=== PATIENT | male | born 1955 | race Caucasian/White ===

== ENCOUNTER 2018-05-13 14:57 | Inpatient (IN) | payer OTHER ==
[~2018-05-13] VITALS: Ht 175.3 cm; Wt 72.7 kg
[2018-05-13] MEDS ORDERED: NALOXONE (0.4 MG/ML) INJ IV STA (15:10)
[2018-05-13] MEDS ORDERED: SODIUM CHLORIDE 0.9% 1L BAG IV* STA (16:24)
[2018-05-13] MEDS ORDERED: CEFEPIME 1GM/50 ML (PMX) 50 ML IVPB ONE (16:30)
[2018-05-13] MEDS ORDERED: metroNIDAZOLE 500 MG/NS (PMX) 100 ML IVPB ONE (16:30)
[2018-05-13] MEDS ORDERED: VANCOMYCIN 1 GM (PMX) 250 ML IVPB ONE (16:30)
[2018-05-13] MEDS ORDERED: HYDR-4011 PO (16:50)
[2018-05-13] MEDS ORDERED: SPIR50TA PO (16:50)
[2018-05-13] MEDS ORDERED: FOLI-49 PO (16:50)
[2018-05-13] MEDS ORDERED: FURO20TA3 PO (16:51)
[2018-05-13] MEDS ORDERED: LEVE100018 PO (16:51)
[2018-05-13] MEDS ORDERED: GABA300C16 PO (16:51)
[2018-05-13] MEDS ORDERED: FAMO40TA5 PO (16:51)
[2018-05-13] MEDS ORDERED: ONDANSETRON 4 MG INJ IV PRN (21:00)
[2018-05-13] MEDS ORDERED: ACETAMINOPHEN 325 MG TAB PO PRN (21:00)
--- NOTE | 2018-05-13 21:38 | ERD ---
ER Documentation Chief Complaint Chief Complaint took vicodin, as per EMS; responsive after narcan x 2 HPI This is a 62-year-old male with an apparent past medical history of hypertension, CHF, seizure disorder, chronic pain/neuropathy on gabapentin and Vicodin, alcohol abuse who is presenting for altered mental status. The patient reportedly walked into a fast food restaurant and ordered something. He was in the process of eating when he reportedly fell asleep at 1 of the tables. The patient had decreased responsiveness and lethargy in the restaurant, so an ambulance was called. There is concerned that the patient could have overdosed on Vicodin and he was given intramuscular Narcan x2 with reported improvement of his mentation. The patient is lethargic in the emergency department. He does open his eyes to pain and he moves extremities to pain. He is currently only making incomprehensible sounds and moans. History and physical is limited secondary to altered mentation. ROS Review of systems limited secondary to altered mentation. Medications Home Meds Reported Medications Levetiracetam* (Keppra*) 1,000 Mg Tablet, 1000 MG PO BID, TAB 05/13/18 Gabapentin* (Gabapentin*) 300 Mg Capsule, 300 MG PO BID, #60 CAP 05/13/18 Famotidine* (Famotidine*) 40 Mg Tablet, 40 MG PO HS, #30 TAB 05/13/18 Furosemide* (Furosemide*) 20 Mg Tablet, 20 MG PO DAILY, #60 TAB 05/13/18 Spironolactone* (Aldactone*) 50 Mg Tablet, 50 MG PO DAILY, #30 TAB 05/13/18 Folic Acid* (Folic Acid*) 1 Mg Tablet, 1 MG PO DAILY 05/13/18 Hydrocodone/Acetaminophen (Bernard 5-325 Tablet) 1 Each Tablet, 1 EACH PO Q12 PRN for SEVERE PAIN LEVEL 7-10, TAB 05/13/18 Allergies Allergies: Coded Allergies: Unable to Assess (Verified Allergy, Severe, 05/13/18) PMhx/Soc Obtained by pharmacy report Medical and Surgical Hx: Unable to obtain Hx Neurological Disorder: Yes (Chronic pain, seizures) Hx Cardiac Disorders: Yes (Hypertension, CHF) Hx Alcohol Use: No (unk) Hx Substance Use: Yes (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 Disheveled. Head: Normocephalic, Atraumatic Eyes: Normal Conjunctiva. Extraocular movements intact. Pupils equal, round and reactive to light ENT: Normal External Ears, Nose and Mouth. Neck: Full range of motion. No meningismus. Resp: Clear to auscultation bilaterally, No wheezes, rales or rhonchi Cardio: Regular rate and rhythm. No murmurs, rubs or gallops Abd: Soft, non tender, non distended. Normal bowel sounds. Incontinent of stool. Skin: No petechiae or rashes Back: No midline tenderness. No CVA tenderness Ext: No cyanosis. Bilateral lower extremity edema with erythema and ulcerative lesions. Neur: Lethargic. Opens eyes to pain. Moves extremities spontaneously and localizes to pain. Groans, making incomprehensible sounds. No obvious focal deficits. GCS is 9. Result Diagram: 05/13/18 1624 05/13/18 1624 Results 24 hrs Laboratory Tests Test 05/13/18 16:24 05/13/18 16:25 05/13/18 16:26 05/13/18 18:50 White Blood Count 8.2 10^3/ul Red Blood Count 3.52 10^6/ul Hemoglobin 11.2 g/dl Hematocrit 33.7 % Mean Corpuscular 95.7 fl Volume Mean Corpuscular 31.8 pg Hemoglobin Mean Corpuscular 33.2 g/dl Hemoglobin Concent Red Cell 17.6 % Distribution Width Platelet Count 218 10^3/UL Mean Platelet 9.2 fl Volume Immature 0.400 % Granulocytes % Neutrophils % 64.1 % Lymphocytes % 17.3 % Monocytes % 14.3 % Eosinophils % 2.9 % Basophils % 1.0 % Nucleated Red Blood 0.0 /100WBC Cells % Immature 0.030 10^3/ul Granulocytes # Neutrophils # 5.3 10^3/ul Lymphocytes # 1.4 10^3/ul Monocytes # 1.2 10^3/ul Eosinophils # 0.2 10^3/ul Basophils # 0.1 10^3/ul Nucleated Red Blood 0.0 10^3/ul Cells # Sodium Level 139 mmol/L Potassium Level 3.2 mmol/L Chloride Level 108 mmol/L Carbon Dioxide 21 mmol/L Level Anion Gap 10 Blood Urea Nitrogen 15 mg/dl Creatinine 0.86 mg/dl Est Glomerular > 60 mL/min Filtrat Rate mL/min Glucose Level 96 mg/dl Calcium Level 8.5 mg/dl Total Bilirubin 0.7 mg/dl Direct Bilirubin 0.00 mg/dl Indirect Bilirubin 0.7 mg/dl Aspartate Amino 95 IU/L Transf (AST/SGOT) Alanine 33 IU/L Aminotransferase (A LT/SGPT) Alkaline 173 IU/L Phosphatase Total Protein 6.9 g/dl Albumin 2.8 g/dl Globulin 4.10 g/dl Albumin/Globulin 0.68 Ratio Salicylates Level < 1.0 mg/dl Acetaminophen Level < 10.0 ug/ml Ethyl Alcohol Level 161.0 mg/dl Prothrombin Time 14.7 Sec Prothrombin Time 1.1 Ratio INR International 1.14 Normalized Ratio Activated 31.0 Sec Partial Thromboplas t Time Urine Color ELIAS Urine Clarity SLIGHTLY CLOUDY Urine pH 5.0 Urine Specific 1.025 [place] Urine Ketones TRACE mg/dL Urine Nitrite NEGATIVE mg/dL Urine Bilirubin NEGATIVE mg/dL Urine Urobilinogen 2+ mg/dL Urine Leukocyte NEGATIVE Mikey/ul Esterase Urine Microscopic 117 /HPF RBC Urine Microscopic 15 /HPF WBC Urine Squamous FEW /HPF Epithelial Cells Urine Bacteria FEW /HPF Urine Mucus MANY /HPF Urine Hemoglobin 3+ mg/dL Urine Glucose NEGATIVE mg/dL Urine Total Protein 2+ mg/dl Troponin I < 0.012 ng/ml Urine Opiates Negative Screen Urine Barbiturates Negative Urine Amphetamines Negative Screen Urine Negative Benzodiazepines Screen Urine Cocaine Negative Screen Urine Cannabinoids Negative POC Venous Lactate 3.0 mmol/L 2.6 mmol/L Current Medications Medications Dose Sig/Angel Start Time Status Last (Trade) Ordered Route PRN Stop Time Admin Dose Reason Admin Naloxone 0.4 mg ONCE STAT 05/13/18 DC 05/13/18 HCl IV 15:10 05/13/18 15:43 (Narcan) 15:13 Sodium 2,180 ml BOLUS OVER 2 05/13/18 DC 05/13/18 Chloride HOURS STAT 16:24 05/13/18 17:57 (NS) IV* 16:26 Vancomycin 250 ml @ ONCE ONCE 05/13/18 DC 05/13/18 HCl 125 mls/hr IVPB 16:30 05/13/18 18:53 18:29 Cefepime HCl 50 ml @ ONCE ONCE 05/13/18 DC 05/13/18 100 mls/hr IVPB 16:30 05/13/18 17:56 16:59 100 ml @ ONCE ONCE 05/13/18 DC 05/13/18 Metronidazole 100 mls/hr IVPB 16:30 05/13/18 17:55 17:29 Ondansetron 4 mg ER BRIDGE 05/13/18 HCl (Zofran PRN IV 21:00 05/14/18 Inj) NAUSEA/VOMITI 20:59 NG 650 mg ER BRIDGE 05/13/18 Acetaminophen PRN PO 21:00 05/14/18 (Tylenol .MILD PAIN 20:59 Tab) 1-3 OR TEMP Procedures/MDM MDM The patient's presentation warrants further investigation. Previous medical rec ords, if available, were reviewed. LABS The patient's laboratory testing was obtained and reviewed. No emergent treatment was required unless described below. CBC: No E/o of systemic infection or severe anemia or thrombocytopenia. Mild normocytic anemia, nonemergent. Chemistry: No E/o severe acidosis or alkalosis or renal failure or diabetic ketoacidosis. Mild hypokalemia, nonemergent. Transaminitis, likely reactive. Mild hypoalbuminemia. PT/INR: No E/o significant coagulopathy Lactate: E/o severe sepsis Troponin: No E/o acute ischemia Urine: E/o acute infection with hematuria Tox: E/o alcohol abuse. No E/o illicit drug use. EKG EKG read by me: Rate/Rhythm: Regular rate and rhythm at a rate of 71 bpm Intervals: Normal [place]: Normal Impression: No evidence of acute ischemia or arrhythmia IMAGING Imaging and Radiology interpretation reviewed. CXR FINDINGS: The heart is enlarged. The thoracic aorta is calcified. There is a questionable 8 mm left upper lobe nodular opacity. There is no focal infiltrate. There is no pleural effusion or pneumothorax. IMPRESSION: Mild cardiomegaly. Calcified aorta consistent with atherosclerotic disease. Questionable 8 mm left upper lobe nodular opacity. Follow-up CT chest with a routine basis is recommended. Electronically viewed and signed by .Job Miller MD, on 05/13/2018 17:13 CT Head FINDINGS: Brain: Mild cerebral and cerebellar volume loss and multifocal areas of hypoattenuation in the deep and subcortical white matter present. No acute hemorrhage or mass effect. Pineda-white distinction is preserved throughout the exam. Skull base: The bony sella, pituitary gland and infundibulum unremarkable. Basal cisterns are clear. Posterior fossa unremarkable. Visualized portions of external auditory canals and tympanic cavities are within normal limits. Ventricles: Concordant with parenchymal volume. Bones/Scalp: No scalp soft tissue swelling. The underlying calvarium is intact without skull fracture or lytic lesion. Sinuses: Mucosal thickening in the left maxillary sinus. Mastoid air cells are aerated. The osseous calvarium appears intact. Mastoid air cells: Unremarkable as visualized. No mastoid effusion. Other: Mild atherosclerotic calcification in the cavernous portions of the distal internal carotid arteries are noted. IMPRESSION: 1. Mild cerebral volume loss with small vessel ischemic changes. 2. No mass effect, transcortical infarction or acute intracerebral hemorrhage. 3. Mild intracranial atherosclerosis. 4. Mucosal thickening in the left maxillary sinus. Electronically viewed and signed by Physician Demetrio on 05/13/2018 17:35 TREATMENT/DISPOSITION There is initial concern for opiate overdose. However, the patient's symptoms are more likely related to alcohol intoxication. The patient's mentation did improve in the emergency department. However, the patient had an episode of profuse watery diarrhea, and there is concern for C. difficile colitis. The patient's urinalysis also reveals a urinary tract infection. There is also concern for cellulitis to the lower extremities. It was ultimately decided to pursue a septic workup, the patient's lactic acid was also elevated. The patient was given a sepsis bolus and antibiotics were initiated. SEPSIS NOTE Infectious source: Infectious diarrhea, UTI, cellulitis End organ damage indicated by: Lactate > 2.0 mmol/L SEPSIS MANAGEMENT Time to recognize sepsis: 430 Time to recognize severe sepsis: 430. Time to recognize septic shock: No septic shock at this time. 3 HOUR BUNDLE Blood cultures x 2 before abx: Yes 30 ml/kg NS bolus completed Initial lactate 3.0 Repeat lactate 2.6 SEPTIC SHOCK ASSESSMENT: NO lactic acid > 4.0 NO persistent hypotension (SBP < 90 or 40 mmHg drop, MAP < 65) despite 30 L/kg IV fluid bolus CRITICAL CARE Critical care time 34 minutes Emergent fluid management while maintaining close respiratory support. Provision of immediate and broad-spectrum antibiotic therapy. Simultaneous assessment for possible sources in order to direct targeted therapy. Consideration for invasive and chemical support to prevent cardiopulmonary collapse. Critical care time is independent of procedures performed. ADMISSION The patient will be admitted to [facility] in accordance with the patient's insurance. The patient was accepted by Dr. Montez at 8:28 PM on May 13, 2018 pending telemetry. Disclaimer: Inadvertent spelling and grammatical errors are likely due to EHR/dictation software use and do not reflect on the overall quality of patient care. Note that the electronic time recorded on this note does not necessarily reflect the actual time of the patient encounter. Departure Diagnosis: Primary Impression: Altered mental status Altered mental status type: unspecified Qualified Codes: R41.82 - Altered mental status, unspecified Additional Impressions: Alcohol intoxication Complication of substance-induced condition: with unspecified complication Qualified Codes: F10.929 - Alcohol use, unspecified with intoxication, unspecified Severe sepsis Leukocytosis Leukocytosis type: unspecified Qualified Codes: D72.829 - Elevated white blood cell count, unspecified Diarrhea Diarrhea type: presumed infectious Qualified Codes: R19.7 - Diarrhea, unspecified Urinary tract infection Urinary tract infection type: acute cystitis Hematuria presence: with he maturia Qualified Codes: N30.01 - Acute cystitis with hematuria Cellulitis Site of cellulitis: extremity Site of cellulitis of extremity: lower extremity Laterality: unspecified laterality Qualified Codes: L03.119 - Cellulitis of unspecified part of limb Condition: Serious AMILCAR OCAMPO MD May 13, 2018 21:36
[2018-05-13 23:19] VITALS: PULSE 70
[2018-05-13 23:42] VITALS: Ht 175.3 cm; Wt 72.7 kg
[2018-05-13 23:54] VITALS: BP 111/74; PULSE 76; RESP 18
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
[2018-05-14] VITALS (11 sets, daily range): BP systolic 93–126; BP diastolic 52–58; PULSE 63–86; RESP 17–20
[2018-05-14] MEDS ORDERED: morphine 2 MG INJ IV PRN
[2018-05-14] MEDS ORDERED: NACL 0.9% 3 ML SYG IV SCH
[2018-05-14] MEDS ORDERED: ONDANSETRON 4 MG INJ IV PRN
[2018-05-14] MEDS ORDERED: LORAZEPAM 2 MG INJ IV PRN
[2018-05-14] MEDS: DEXTROSE 5%-0.45% NACL 1,000 ML IV SCH ×3 (00:52→21:26)
[2018-05-14] MEDS ORDERED: VANCOMYCIN IV PER PHARMACY XX SCH (07:00)
[2018-05-14] MEDS: LEVETIRACETAM 1000 MG (PMX) 100 ML IVPB SCH ×2 (08:14→22:37)
[2018-05-14] MEDS: CEFEPIME 1GM/50 ML (PMX) 50 ML IVPB SCH ×2 (08:18→21:27)
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
[2018-05-14] MEDS: CHLORDIAZEPOXIDE 25 MG CAP PO SCH ×3 (09:56→21:14)
--- NOTE | 2018-05-14 10:00 | PSY ---
Date/Time of Note Date/Time of Note DATE: 05/14/18 TIME: 09:47 Psychiatric Subjective Eval Consent Pt consented to telemedicine: No Subjective Evaluation Patient location: inpatient Chief Complaint: took vicodin, as per EMS; responsive after narcan x 2 History of present illness Patient is a 62-year-old male who currently on telemetry units for altered mental status and possible opioid overdose. [id number] evaluation, patient somewhat lethargic but admits he accidentally took excessive amount of the methadone to be able to sleep. He denies any suicidal acts states he loves life and would never kill himself but that he has chronic insomnia and has been treated at [facility] for his chronic insomnia patient states he does not remember specifically how much methadone he took. Patient is currently confabulating, difficult to get him to focus . He goes off on tangents,repeating his words over and over again. Patient cannot process information however he was consistence stating that he is not suicidal and that he loves life and contracted for safety. 1-1 supervision discontinued. Past psychiatric history Reports history of insomnia and had been seen at [facility] for insomnia Hospitalization: no (Patient denies hospitalization but admits history of insomnia and sees a psychiatrist for insomnia at [facility]) Medical history Problems Medical Problems: (1) Alcohol intoxication Status: Acute (2) Altered mental status Status: Acute (3) Cellulitis Status: Acute (4) Diarrhea Status: Acute (5) Leukocytosis Status: Acute (6) Severe sepsis Status: Acute (7) Urinary tract infection Status: Acute Allergies: Coded Allergies: Unable to Assess (Verified Allergy, Severe, 05/13/18) Substance Abuse Substance use: other (History of alcohol abuse and heroin abuse) Substance abuse history: Yes Social History Marital status: single DPA/Conservatorship: No Psychiatric Objective Eval Review of Systems: Review of Systems: Not Applicable Physical Examination: Energy: Adequate Interest: Adequate Mental Status Examination: Appearance: Poor Hygiene Eye Contact: Fair Behavior: Cooperative Speech: Soft AFFECT: Constricted Mood: Anxious Though Process: Linear Thought Content: Normal Orientation: x3 Insight: Severe Judgement: Severe Attention Span: Distractible Laboratory Results Laboratory Tests Test 05/13/18 16:24 05/13/18 16:25 05/13/18 16:26 05/13/18 18:50 White Blood Count 8.2 10^3/ul Red Blood Count 3.52 10^6/ul Hemoglobin 11.2 g/dl Hematocrit 33.7 % Mean Corpuscular 95.7 fl Volume Mean Corpuscular 31.8 pg Hemoglobin Mean Corpuscular 33.2 g/dl Hemoglobin Concen t Red Cell 17.6 % Distribution Width Platelet Count 218 10^3/UL Mean Platelet 9.2 fl Volume Immature 0.400 % Granulocytes % Neutrophils % 64.1 % Lymphocytes % 17.3 % Monocytes % 14.3 % Eosinophils % 2.9 % Basophils % 1.0 % Nucleated Red 0.0 /100WBC Blood Cells % Immature 0.030 10^3/ul Granulocytes # Neutrophils # 5.3 10^3/ul Lymphocytes # 1.4 10^3/ul Monocytes # 1.2 10^3/ul Eosinophils # 0.2 10^3/ul Basophils # 0.1 10^3/ul Nucleated Red 0.0 10^3/ul Blood Cells # Sodium Level 139 mmol/L Potassium Level 3.2 mmol/L Chloride Level 108 mmol/L Carbon Dioxide 21 mmol/L Level Anion Gap 10 Blood Urea 15 mg/dl Nitrogen Creatinine 0.86 mg/dl Est Glomerular > 60 mL/min Filtrat Rate mL/min Glucose Level 96 mg/dl Calcium Level 8.5 mg/dl Total Bilirubin 0.7 mg/dl Direct Bilirubin 0.00 mg/dl Indirect 0.7 mg/dl Bilirubin Aspartate Amino 95 IU/L Transf (AST/SGOT) Alanine 33 IU/L Aminotransferase (ALT/SGPT) Alkaline 173 IU/L Phosphatase Total Protein 6.9 g/dl Albumin 2.8 g/dl Globulin 4.10 g/dl Albumin/Globulin 0.68 Ratio Salicylates Level < 1.0 mg/dl Acetaminophen < 10.0 ug/ml Level Ethyl Alcohol 161.0 mg/dl Level Prothrombin Time 14.7 Sec Prothrombin Time 1.1 Ratio INR International 1.14 Normalized Ratio Activated 31.0 Sec Partial Thrombopl ast Time Urine Color ELIAS Urine Clarity SLIGHTLY CLOUDY Urine pH 5.0 Urine Specific 1.025 [place] Urine Ketones TRACE mg/dL Urine Nitrite NEGATIVE mg/dL Urine Bilirubin NEGATIVE mg/dL Urine 2+ mg/dL Urobilinogen Urine Leukocyte NEGATIVE Mikey/ul Esterase Urine Microscopic 117 /HPF RBC Urine Microscopic 15 /HPF WBC Urine Squamous FEW /HPF Epithelial Cells Urine Bacteria FEW /HPF Urine Mucus MANY /HPF Urine Hemoglobin 3+ mg/dL Urine Glucose NEGATIVE mg/dL Urine Total 2+ mg/dl Protein Troponin I < 0.012 ng/ml Urine Opiates Negative Screen Urine Negative Barbiturates Urine Negative Amphetamines Screen Urine Negative Benzodiazepines Screen Urine Cocaine Negative Screen Urine Negative Cannabinoids POC Venous 3.0 mmol/L 2.6 mmol/L Lactate Test 05/13/18 21:25 05/14/18 00:27 05/14/18 06:03 Lactic Acid Level 2.1 mmol/L Creatine Kinase 111 IU/L 92 IU/L Creatine Kinase 3.8 4.0 Index Creatinine Kinase 4.27 ng/ml 3.68 ng/ml MB (Mass) Troponin I < 0.012 ng/ml < 0.012 ng/ml White Blood Count 8.5 10^3/ul Red Blood Count 3.16 10^6/ul Hemoglobin 10.1 g/dl Hematocrit 30.8 % Mean Corpuscular 97.5 fl Volume Mean Corpuscular 32.0 pg Hemoglobin Mean Corpuscular 32.8 g/dl Hemoglobin Concen t Red Cell 17.7 % Distribution Width Platelet Count 147 10^3/UL Mean Platelet 9.1 fl Volume Immature 0.500 % Granulocytes % Neutrophils % 67.0 % Lymphocytes % 16.8 % Monocytes % 11.8 % Eosinophils % 3.2 % Basophils % 0.7 % Nucleated Red 0.0 /100WBC Blood Cells % Immature 0.040 10^3/ul Granulocytes # Neutrophils # 5.7 10^3/ul Lymphocytes # 1.4 10^3/ul Monocytes # 1.0 10^3/ul Eosinophils # 0.3 10^3/ul Basophils # 0.1 10^3/ul Nucleated Red 0.0 10^3/ul Blood Cells # Sodium Level 141 mmol/L Potassium Level 3.6 mmol/L Chloride Level 110 mmol/L Carbon Dioxide 24 mmol/L Level Anion Gap 7 Blood Urea 14 mg/dl Nitrogen Creatinine 0.72 mg/dl Est Glomerular > 60 mL/min Filtrat Rate mL/min Glucose Level 80 mg/dl Hemoglobin A1c 4.6 % Calcium Level 7.6 mg/dl Magnesium Level 1.8 mg/dl Total Bilirubin 0.8 mg/dl Direct Bilirubin 0.00 mg/dl Indirect 0.8 mg/dl Bilirubin Aspartate Amino 67 IU/L Transf (AST/SGOT) Alanine 37 IU/L Aminotransferase (ALT/SGPT) Alkaline 119 IU/L Phosphatase Total Protein 5.8 g/dl Albumin 2.1 g/dl Globulin 3.70 g/dl Albumin/Globulin 0.56 Ratio Triglycerides 50 mg/dl Level Cholesterol Level 96 mg/dl LDL Cholesterol, 48 mg/dl Calculated HDL Cholesterol 38 mg/dl Cholesterol/HDL 2.5 RATIO Ratio Thyroid 0.681 MIU/L Stimulating Hormone (TSH) Assessment and Plan Assessment/Diagnosis Diagnosis Insomnia NOS, rule out delirium Recommendation/Plan Medication Management Trazodone 50 mg at bedtime, gabapentin 300 mg twice a day, continue Ativan 1 mg every 1 PRN as ordered Multiple antipsychotics: No Discharge Disposition: Other Legal Status: Voluntary (Does not meet criteria for 5150 hold) ALEX WIGGINS NP May 14, 2018 09:57
[2018-05-14] MEDS: MULTIVITAMINS 10 ML, THIAMINE 100 MG, FOLIC ACID 1 MG in SOD CHLORIDE 0.9% 1,000 ML IVPB SCH (10:06)
[2018-05-14] MEDS: GABAPENTIN 300 MG CAP PO SCH ×2 (10:38→21:14)
[2018-05-14] MEDS: VANCOMYCIN HCL 1.25 GM in SOD CHLORIDE 0.9% 250 ML IVPB SCH ×2 (10:59→23:03)
[2018-05-14] MEDS ORDERED: METHADONE (1 MG/ML 5 ML PO UD SYG) PO SCH (11:00)
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
[2018-05-14] MEDS: METHADONE 10 MG TAB PO SCH (11:38)
[2018-05-14] MEDS: traZODone 50 MG TAB PO SCH (21:13)
[2018-05-15] VITALS (12 sets, daily range): BP systolic 95–116; BP diastolic 52–62; PULSE 65–89; RESP 18–19
[2018-05-15] MEDS: GUAIFENESIN/CODEINE 5ML CUP PO PRN ×2 (00:28→22:10)
[2018-05-15] MEDS: DEXTROSE 5%-0.45% NACL 1,000 ML IV SCH ×2 (04:49→16:01)
[2018-05-15] MEDS: LEVETIRACETAM 1000 MG (PMX) 100 ML IVPB SCH ×2 (08:38→22:09)
[2018-05-15] MEDS: METHADONE 10 MG TAB PO SCH (08:44)
[2018-05-15] MEDS: GABAPENTIN 300 MG CAP PO SCH ×2 (08:44→22:09)
[2018-05-15] MEDS: CHLORDIAZEPOXIDE 25 MG CAP PO SCH ×3 (08:45→22:09)
[2018-05-15] MEDS: CEFEPIME 1GM/50 ML (PMX) 50 ML IVPB SCH ×2 (08:56→21:22)
[2018-05-15] MEDS: MULTIVITAMINS 10 ML, THIAMINE 100 MG, FOLIC ACID 1 MG in SOD CHLORIDE 0.9% 1,000 ML IVPB SCH (09:32)
[2018-05-15] MEDS: VANCOMYCIN HCL 1.25 GM in SOD CHLORIDE 0.9% 250 ML IVPB SCH (09:37)
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
[2018-05-15] MEDS: FUROSEMIDE 20 MG INJ IV SCH (12:28)
[2018-05-15] MEDS: traZODone 50 MG TAB PO SCH (22:09)
[2018-05-16] VITALS (12 sets, daily range): BP systolic 90–114; BP diastolic 50–63; PULSE 65–88; RESP 16–18
[2018-05-16] MEDS: DEXTROSE 5%-0.45% NACL 1,000 ML IV SCH (02:09)
[2018-05-16] MEDS: VANCOMYCIN 1 GM 250 ML IVPB SCH ×2 (02:09→14:55)
--- NOTE | 2018-05-16 09:03 | CONS ---
DATE OF ADMISSION: 05/13/2018 DATE OF CONSULTATION: 05/16/2018 REFERRING PHYSICIAN: Dr. Angeles Reynoso. REASON FOR CONSULTATION: Right calf ulcer. HISTORY OF PRESENT ILLNESS: This is a 62-year-old lethargic gentleman who was admitted with altered mental status and syncope. It is likely related to heavy alcohol abuse and pain medication. He is s till recovering. He is lethargic and sleepy, but I was asked to see him because he has a right anter ior calf ulcer that has been there for many years. Apparently it was traumatic at some point. He is a very poor historian. PAST MEDICAL HISTORY: Significant for alcohol intoxication, cellulitis, altered mental status, urina ry tract infections. MEDICATIONS: Consist of: 1. Famotidine. 2. Folate. 3. Lasix. 4. Gabapentin. 5. [place]. 6. Keppra. 7. Aldactone. PAST SURGICAL HISTORY: Basically unknown. SOCIAL HISTORY: He is an everyday smoker. FAMILY HISTORY: Noncontributory. REVIEW OF SYSTEMS: These were just sleeping and lethargic, currently unable to get a history from [facility]. PHYSICAL EXAMINATION GENERAL: He is an elderly gentleman. He is in no distress. VITAL SIGNS: He has been afebrile. His blood pressure is 90/51, heart rate 71, respiratory rate 16. He is 93% sat on room air. NECK: He has 2+ carotid, radial and brachial pulses bilaterally. LUNGS: Clear. HEART: Regular rate and rhythm. ABDOMEN: Soft, nontender, nondistended. EXTREMITIES: He has 2+ femoral pulses. I do not feel popliteal, DP or PT pulses on either leg. He has got moderate edema in both legs. On the right anterior lateral calf, there is a large chronic wound. There are pictures of it on the [facility] chart. He has not had any lower extremity imaging. I will schedule him for arterial and venous studies of the lower extremities to get a baseline and then recommend some wound care. He is capitate at [facility] so that when he is discharged he can follow up with him at the wound center t here for further care. Dictated By: HAFSA MELGAR/KENNEDI Conf#: [id number] DID#: [id number] CC: ANGELES REYNOSO; JENY HEBERT MD;*[facility]*
[2018-05-16] MEDS: LEVETIRACETAM 1000 MG (PMX) 100 ML IVPB SCH ×2 (09:48→21:04)
[2018-05-16] MEDS: CHLORDIAZEPOXIDE 25 MG CAP PO SCH ×2 (09:50→20:48)
[2018-05-16] MEDS: METHADONE 10 MG TAB PO SCH (09:50)
[2018-05-16] MEDS: GABAPENTIN 300 MG CAP PO SCH ×2 (09:51→20:48)
[2018-05-16] MEDS: CEFEPIME 1GM/50 ML (PMX) 50 ML IVPB SCH ×2 (09:51→20:48)
[2018-05-16] MEDS: FUROSEMIDE 20 MG INJ IV SCH (09:51)
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
[2018-05-16] MEDS: traZODone 50 MG TAB PO SCH (20:48)
[2018-05-16] MEDS ORDERED: IOHEXOL 300MG/ML 150 ML BTL ONE (22:44)
[2018-05-16] MEDS ORDERED: SOD CHLORIDE 0.9% 100 ML ONE (22:44)
[2018-05-17] VITALS (13 sets, daily range): BP systolic 92–106; BP diastolic 44–59; PULSE 63–78; RESP 16–20
[2018-05-17] MEDS: VANCOMYCIN 1 GM 250 ML IVPB SCH (01:48)
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
--- NOTE | 2018-05-17 06:37 | CONS ---
Consultation Date/Type/Reason Admit Date/Time May 13, 2018 at 20:53 Date/Time of Note DATE: 05/17/18 TIME: 06:37 Above note for patient was for hospital visit May 16, 2018, postdated note. Past Medical History Medical History: other (Unreliable) Home Meds Reported Medications Levetiracetam* (Keppra*) 1,000 Mg Tablet, 1000 MG PO BID, TAB 05/13/18 Gabapentin* (Gabapentin*) 300 Mg Capsule, 300 MG PO BID, #60 CAP 05/13/18 Famotidine* (Famotidine*) 40 Mg Tablet, 40 MG PO HS, #30 TAB 05/13/18 Furosemide* (Furosemide*) 20 Mg Tablet, 20 MG PO DAILY, #60 TAB 05/13/18 Spironolactone* (Aldactone*) 50 Mg Tablet, 50 MG PO DAILY, #30 TAB 05/13/18 Folic Acid* (Folic Acid*) 1 Mg Tablet, 1 MG PO DAILY 05/13/18 Hydrocodone/Acetaminophen ([place] 5-325 Tablet) 1 Each Tablet, 1 EACH PO Q12 PRN for SEVERE PAIN LEVEL 7-10, TAB 05/13/18 Medications Current Medications IV Flush (NS 3 ml) 3 ml PER PROTOCOL IV ; Start 05/14/18 at 00:00 Lorazepam (Ativan) 1 mg Q1H PRN IV CONTROL WITHDRAWAL SYMPTOMS; Start 05/14/18 at 00:00 Ondansetron HCl (Zofran Inj) 4 mg Q6H PRN IV NAUSEA/VOMITING; Start 05/14/18 at 00:00 Albuterol/ Ipratropium (Duoneb) 3 ml Q2H RESP THERAPY PRN HHN SHORTNESS OF BREATH; Start 05/14/18 at 00:00 Levetiracetam 100 ml @ 400 mls/hr Q12 IVPB Last administered on 05/16/18at 21:04; Admin Dose 400 MLS/HR; Start 05/14/18 at 09:00 Vancomycin HCl (Vanco Iv Per Pharmacy) VANCOMYCIN PER PHARMACY PER PROTOCOL XX ; Start 05/14/18 at 07:00 Cefepime HCl 50 ml @ 100 mls/hr Q12 IVPB Last administered on 05/16/18at 20:48; Admin Dose 100 MLS/HR; Start 05/14/18 at 09:00 Trazodone HCl (Desyrel) 50 mg HS PO Last administered on 05/16/18 20:48; Admin Dose 50 MG; Start 05/14/18 at 21:00 Gabapentin (Neurontin) 300 mg BID PO Last administered on 05/16/18 20:48; Admin Dose 300 MG; Start 05/14/18 at 10:00 Methadone HCl (Methadone) 20 mg DAILY PO Last administered on 05/16/18 09:50; Admin Dose 20 MG; Start 05/14/18 at 12:00 Furosemide (Lasix) 20 mg DAILY IV Last administered on 05/16/18 09:51; Admin Dose 20 MG; Start 05/15/18 at 12:00; Stop 05/17/18 at 13:00 Vancomycin HCl 250 ml @ 125 mls/hr Q12H IVPB Last administered on 05/17/18 01:48; Admin Dose 125 MLS/HR; Start 05/16/18 at 01:00 Miscellaneous Information (*Rx Drug Level Order Reminder*) VANCO TR 05/17 AT 1200 ONCE ONCE XX ; Start 05/17/18 at 12:00; Stop 05/17/18 at 12:01 Chlordiazepoxide (Librium) 25 mg BID PO Last administered on 05/16/18 20:48; Admin Dose 25 MG; Start 05/16/18 at 21:00 Acetaminophen/ Hydrocodone Bitart ([place] (5/325)) 1 tab Q4H PRN PO MODERATE PAIN LEVEL 4-6; Start 05/16/18 at 17:00 Allergies: Coded Allergies: Unable to Assess (Verified Allergy, Severe, 05/13/18) Past Surgical History Past Surgical Hx: other (Unreliable) Social History Smoking Status: Current every day smoker Drug Use: heroin (Last used 2 years ago) Exam/Review of Systems Exam Vitals Vital Signs Date Temp Pulse Resp B/P (MAP) Pulse Ox O2 O2 Flow FiO2 Time Delivery Rate 05/17/18 72 04:35 05/17/18 97.8 20 95/52 (66) 93 04:00 05/16/18 Nasal 2.0 19:38 Cannula Intake and Output 05/16/18 05/16/18 05/17/18 1515:00 23:00 07:00 IntakeIntake Total 150 ml 400 ml 350 ml OutputOutput Total 1600 ml 450 ml BalanceBalance 150 ml -1200 ml -100 ml Results Result Diagram: 05/16/1812 05/16/18611 Medications Medication Current Medications IV Flush (NS 3 ml) 3 ml PER PROTOCOL IV ; Start 05/14/18 at 00:00 Lorazepam (Ativan) 1 mg Q1H PRN IV CONTROL WITHDRAWAL SYMPTOMS; Start 05/14/18 at 00:00 Ondansetron HCl (Zofran Inj) 4 mg Q6H PRN IV NAUSEA/VOMITING; Start 05/14/18 at 00:00 Albuterol/ Ipratropium (Duoneb) 3 ml Q2H RESP THERAPY PRN HHN SHORTNESS OF BREATH; Start 05/14/18 at 00:00 Levetiracetam 100 ml @ 400 mls/hr Q12 IVPB Last administered on 05/16/18at 21:04; Admin Dose 400 MLS/HR; Start 05/14/18 at 09:00 Vancomycin HCl (Vanco Iv Per Pharmacy) VANCOMYCIN PER PHARMACY PER PROTOCOL XX ; Start 05/14/18 at 07:00 Cefepime HCl 50 ml @ 100 mls/hr Q12 IVPB Last administered on 05/16/18 20:48; Admin Dose 100 MLS/HR; Start 05/14/18 at 09:00 Trazodone HCl (Desyrel) 50 mg HS PO Last administered on 05/16/18 20:48; Admin Dose 50 MG; Start 05/14/18 at 21:00 Gabapentin (Neurontin) 300 mg BID PO Last administered on 05/16/18 20:48; Admin Dose 300 MG; Start 05/14/18 at 10:00 Methadone HCl (Methadone) 20 mg DAILY PO Last administered on 05/16/18 09:50; Admin Dose 20 MG; Start 05/14/18 at 12:00 Furosemide (Lasix) 20 mg DAILY IV Last administered on 05/16/18 09:51; Admin Dose 20 MG; Start 05/15/18 at 12:00; Stop 05/17/18 at 13:00 Vancomycin HCl 250 ml @ 125 mls/hr Q12H IVPB Last administered on 05/17/18 01:48; Admin Dose 125 MLS/HR; Start 05/16/18 at 01:00 Miscellaneous Information (*Rx Drug Level Order Reminder*) VANCO TR 05/17 AT 1200 ONCE ONCE XX ; Start 05/17/18 at 12:00; Stop 05/17/18 at 12:01 Chlordiazepoxide (Librium) 25 mg BID PO Last administered on 05/16/18at 20:48; Admin Dose 25 MG; Start 05/16/18 at 21:00 Acetaminophen/ Hydrocodone Bitart ([place] (5/325)) 1 tab Q4H PRN PO MODERATE PAIN LEVEL 4-6; Start 05/16/18 at 17:00 CEZAR MARIE May 17, 2018 06:37
[2018-05-17] MEDS: CEFEPIME 1GM/50 ML (PMX) 50 ML IVPB SCH ×2 (09:42→21:56)
[2018-05-17] MEDS: CHLORDIAZEPOXIDE 25 MG CAP PO SCH (09:51)
[2018-05-17] MEDS: GABAPENTIN 300 MG CAP PO SCH ×2 (09:51→21:56)
[2018-05-17] MEDS: FUROSEMIDE 20 MG INJ IV SCH (09:51)
[2018-05-17] MEDS: METHADONE 10 MG TAB PO SCH (09:52)
[2018-05-17] MEDS: LEVETIRACETAM 1000 MG (PMX) 100 ML IVPB SCH ×2 (10:42→23:22)
[2018-05-17] MEDS: HYDROCODONE/APAP (5/325) TAB PO PRN ×2 (10:43→23:22)
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
[2018-05-17] MEDS: traZODone 50 MG TAB PO SCH (21:56)
[2018-05-17] MEDS: VANCOMYCIN HCL 1.25 GM in SOD CHLORIDE 0.9% 250 ML IVPB SCH (23:22)
[2018-05-17] MEDS: ALBUTEROL/IPRATROPIUM (NEB) 3 ML AMP HHN PRN (23:44)
[2018-05-18] VITALS (13 sets, daily range): BP systolic 89–104; BP diastolic 47–74; PULSE 61–94; RESP 16–20
[2018-05-18] MEDS: LEVETIRACETAM 1000 MG (PMX) 100 ML IVPB SCH ×2 (08:20→21:33)
[2018-05-18] MEDS: GABAPENTIN 300 MG CAP PO SCH ×2 (08:21→20:58)
[2018-05-18] MEDS: METHADONE 10 MG TAB PO SCH (08:21)
[2018-05-18] MEDS: CEFEPIME 1GM/50 ML (PMX) 50 ML IVPB SCH ×2 (09:28→20:57)
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
[2018-05-18] MEDS: VANCOMYCIN HCL 1.25 GM in SOD CHLORIDE 0.9% 250 ML IVPB SCH ×2 (20:00→20:57)
[2018-05-18] MEDS: ALBUTEROL/IPRATROPIUM (NEB) 3 ML AMP HHN PRN (21:42)
[2018-05-19] VITALS (11 sets, daily range): BP systolic 94–109; BP diastolic 49–59; PULSE 82–91; RESP 18–20
[2018-05-19] MEDS: ALBUTEROL/IPRATROPIUM (NEB) 3 ML AMP HHN SCH ×6 (00:56→20:23)
[2018-05-19] MEDS: LEVETIRACETAM 1000 MG (PMX) 100 ML IVPB SCH ×2 (08:22→20:57)
[2018-05-19] MEDS: GABAPENTIN 300 MG CAP PO SCH ×2 (08:22→20:57)
[2018-05-19] MEDS: CEFEPIME 1GM/50 ML (PMX) 50 ML IVPB SCH ×2 (08:56→20:57)
[2018-05-19] MEDS ORDERED: ENOXAPARIN 40 MG/0.4 ML SYG SC SCH (09:00)
[2018-05-19] MEDS: HYDROCODONE/APAP (5/325) TAB PO PRN ×2 (09:32→23:37)
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
[2018-05-19] MEDS: ALBUTEROL/IPRATROPIUM (NEB) 3 ML AMP HHN PRN (15:11)
[2018-05-19] MEDS: VANCOMYCIN HCL 1.25 GM in SOD CHLORIDE 0.9% 250 ML IVPB SCH (20:51)
[2018-05-20] VITALS (21 sets, daily range): BP systolic 94–131; BP diastolic 50–69; PULSE 71–85; RESP 17–30
[2018-05-20] MEDS: ALBUTEROL/IPRATROPIUM (NEB) 3 ML AMP HHN SCH ×7 (01:45→23:48)
[2018-05-20] MEDS ORDERED: SUCCINYLCHOLINE CHLORIDE 100 MG/5 ML SYG IV ONE (07:00)
[2018-05-20] MEDS ORDERED: PROPOFOL 200 MG INJ ONE (07:00)
[2018-05-20] MEDS: LEVETIRACETAM 1000 MG (PMX) 100 ML IVPB SCH ×2 (08:48→20:27)
[2018-05-20] MEDS: CEFEPIME 1GM/50 ML (PMX) 50 ML IVPB SCH ×2 (08:48→20:49)
[2018-05-20] MEDS: GABAPENTIN 300 MG CAP PO SCH ×2 (08:48→20:27)
[2018-05-20] MEDS ORDERED: INDOMETHACIN 50 MG SUPP PR ONE (12:30)
[2018-05-20] MEDS ORDERED: IOHEXOL 300MG/ML 30 ML BTL ONE ×2 (13:41→15:23)
--- NOTE | 2018-05-20 14:19 | PREAC ---
Date/Time of Note Date/Time of Note DATE: 05/20/18 TIME: 14:17 Anesthesia Eval and Record Evaluation Time Pre-Procedure Interview DATE: 05/20/18 TIME: 14:17 Age 62 Sex male NPO: 8 hrs Preoperative diagnosis dilated common bile duct Planned procedure ERCP Past Medical History Past Medical History: Includes Hepatic: Alcohol abuse, Cirrhosis Heme: Anemia Recreational drugs: Heroin, Other (methadone, vicodin) Surgery & Anesthesia Issues No known issue Meds Anticoagulation: No Beta Junior within 24 hr: No Reason Beta Junior not given: Pt. not on B-Junior Reported Medications Levetiracetam* (Keppra*) 1,000 Mg Tablet, 1000 MG PO BID, TAB 05/13/18 Gabapentin* (Gabapentin*) 300 Mg Capsule, 300 MG PO BID, #60 CAP 05/13/18 Famotidine* (Famotidine*) 40 Mg Tablet, 40 MG PO HS, #30 TAB 05/13/18 Furosemide* (Furosemide*) 20 Mg Tablet, 20 MG PO DAILY, #60 TAB 05/13/18 Spironolactone* (Aldactone*) 50 Mg Tablet, 50 MG PO DAILY, #30 TAB 05/13/18 Folic Acid* (Folic Acid*) 1 Mg Tablet, 1 MG PO DAILY 05/13/18 Hydrocodone/Acetaminophen ([place] 5-325 Tablet) 1 Each Tablet, 1 EACH PO Q12 PRN for SEVERE PAIN LEVEL 7-10, TAB 05/13/18 Current Medications IV Flush (NS 3 ml) 3 ml PER PROTOCOL IV ; Start 05/14/18 at 00:00 Lorazepam (Ativan) 1 mg Q1H PRN IV CONTROL WITHDRAWAL SYMPTOMS; Start 05/14/18 at 00:00 Ondansetron HCl (Zofran Inj) 4 mg Q6H PRN IV NAUSEA/VOMITING; Start 05/14/18 at 00:00 Albuterol/ Ipratropium (Duoneb) 3 ml Q2H RESP THERAPY PRN HHN SHORTNESS OF BREATH Last administered on 05/19/18at 15:11; Admin Dose 3 ML; Start 05/14/18 at 00:00 Levetiracetam 100 ml @ 400 mls/hr Q12 IVPB Last administered on 05/20/18at 08:48; Admin Dose 400 MLS/HR; Start 05/14/18 at 09:00 Vancomycin HCl (Vanco Iv Per Pharmacy) VANCOMYCIN PER PHARMACY PER PROTOCOL XX ; Start 05/14/18 at 07:00; Stop 05/22/18 at 23:59 Cefepime HCl 50 ml @ 100 mls/hr Q12 IVPB Last administered on 05/20/18at 08:48; Admin Dose 100 MLS/HR; Start 05/14/18 at 09:00; Stop 05/22/18 at 23:59 Gabapentin (Neurontin) 300 mg BID PO Last administered on 05/20/18at 08:48; Admin Dose 300 MG; Start 05/14/18 at 10:00 Methadone HCl (Methadone) 20 mg DAILY PO Last administered on 05/18/18at 08:21; Admin Dose 20 MG; Start 05/14/18 at 12:00; Status Hold Acetaminophen/ Hydrocodone Bitart ([place] (5/325)) 1 tab Q4H PRN PO MODERATE PAIN LEVEL 4-6 Last administered on 05/19/18at 23:37; Admin Dose 1 TAB; Start 05/16/18 at 17:00 Vancomycin HCl 1.25 gm/Sodium Chloride 250 ml @ 83.333 mls/ hr Q24H IVPB Last administered on 05/19/18at 20:51; Admin Dose 83.333 MLS/HR; Start 05/17/18 at 20:00; Stop 05/22/18 at 23:59 Albuterol/ Ipratropium (Duoneb) 3 ml Q4H RESP THERAPY HHN Last administered on 05/20/18at 13:54; Admin Dose 3 ML; Start 05/19/18 at 01:00 Meds reviewed: Yes Allergies Coded Allergies: Unable to Assess (Verified Allergy, Severe, 05/13/18) Allergies Reviewed: Yes (NKDA) Labs/Studies Labs Reviewed: Reviewed by anesthesiologist Result Diagram: 05/20/18 0635 05/20/18 0635 Laboratory Tests 05/20/18 06:35 test: N/A Pre-procedure Exam Last vitals Vital Signs Date Temp Pulse Resp B/P (MAP) Pulse Ox O2 O2 Flow FiO2 Time Delivery Rate 05/20/18 74 12:14 05/20/18 98.0 20 110/58 96 Room Air 11:36 (75) 05/20/18 4.0 08:52 Airway: Adequate mouth opening, Adequate thyromental dist Mallampati: Mallampati II Teeth: Normal Lung: Normal Heart: Normal ASA Physical Status ASA physical status: 3 Emergency: None Planned Pain Management Parenteral pain med Pre-operative Attestations Prior to commencing anesthesia and surgery, the patient was re-evaluated, there was verification of: *The patient's identity *The results of appropriate recent lab work and preoperative vital signs *The above evaluation not changing prior to induction *Anesthetic plan, risk benefits, alternative and complications discussed with patient/family; questions answered; patient/family understands, accepts and wishes to proceed. ELIA CABRERA MD May 20, 2018 14:19
[2018-05-20] MEDS ORDERED: EPHEDrine SULFATE 50 MG/5 ML SYG IV PRN (14:30)
[2018-05-20] MEDS ORDERED: FENTAnyl 50 MCG/ML VIAL IV PRN (14:30)
[2018-05-20] MEDS ORDERED: ONDANSETRON 4 MG INJ IV PRN (14:30)
[2018-05-20] MEDS ORDERED: PROCHLORPERAZINE 10 MG INJ IV PRN (14:30)
[2018-05-20] MEDS ORDERED: hydrALAzine 20 MG INJ IV PRN (14:30)
[2018-05-20] MEDS ORDERED: DIPHENHYDRAMINE 50 MG INJ IV PRN (14:30)
[2018-05-20] MEDS ORDERED: MEPERIDINE 25 MG INJ IV PRN (14:30)
[2018-05-20] MEDS ORDERED: LABETALOL HCL 20MG INJ IV PRN (14:30)
[2018-05-20] MEDS ORDERED: HYDROmorphONE 1 MG/5 ML IV SYRINGE IV PRN ×2 (14:30→16:30)
--- NOTE | 2018-05-20 14:49 | HPN ---
Date/Time of Note Date/Time of Note DATE: 05/20/18 TIME: 14:49 Interval H&P Admission Note Pt. seen H&P reviewed: No system changes KIAN MATHEW MD May 20, 2018 14:49
[2018-05-20] MEDS ORDERED: FENTAnyl 50 MCG/ML VIAL ONE (14:52)
[2018-05-20] MEDS ORDERED: MIDAZOLAM 1 MG/ML 2 ML INJ ONE (14:52)
[2018-05-20] MEDS ORDERED: PROPOFOL 20 ML ONE (14:52)
[2018-05-20] MEDS ORDERED: LIDOCAINE 2% (SDV) 5 ML INJ ONE (14:52)
[2018-05-20] MEDS ORDERED: DEXAMETHASONE 4 MG/ML 5 ML INJ ONE (15:08)
[2018-05-20] MEDS ORDERED: ONDANSETRON 4 MG INJ ONE (15:08)
[2018-05-20] MEDS ORDERED: FAMOTIDINE 20 MG INJ ONE (15:10)
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
[2018-05-20] MEDS ORDERED: METOCLOPRAMIDE 10 MG INJ ONE (15:11)
--- NOTE | 2018-05-20 16:03 | PAC ---
Date/Time of Note Date/Time of Note DATE: 05/20/18 TIME: 16:01 Post-Anesthesia Notes Post-Anesthesia Note Last documented vital signs Vital Signs Date Temp Pulse Resp B/P (MAP) Pulse Ox O2 O2 Flow FiO2 Time Delivery Rate 05/20/18 69 18 93 Nasal 4.0 13:52 Cannula 05/20/18 98.0 110/58 11:36 (75) Activity: WNL Respiratory function: WNL Cardiovascular function: WNL Mental status: Baseline Pain reasonably controlled: Yes Hydration appropriate: Yes Nausea/Vomiting absent: Yes Comments BP: 124/63 HR: 80 RR: 15 T; 98.1 Sao2: 95% ELIA CABRERA MD May 20, 2018 16:03
--- NOTE | 2018-05-20 17:46 | OPPN ---
Date/Time of Note Date/Time of Note DATE: 05/20/18 TIME: 17:43 Proc Note GI Procedure Date 05/20/18 Indication: diagnostic, treatment Pre-procedure Diagnosis Dilated biliary tree Post-procedure Diagnosis Impression: Significant dilatation of the biliary tree with poor emptying consistent with papillary stenosis Post sphincterotomy and balloon sweeping of the biliary tree Plan: Close observation. Advance diet. Monitor liver function test. . Procedure Performed: ERCP (With sphincterotomy) Surgeon KIAN MATHEW MD See signature line Team Assembly Line Machine Operator none Anesthesia Type: general Anesthesiologist: ELIA CABRERA MD Tourniquet Time none EBL none Transfusion required none Biopsy 1: None Grafts/Implants none Tubes/Drains none Complication(s) none Disposition: PACU Procedure Description After informed consent, with the patient/relatives understanding the procedure, its indications, potential risks and complications, including but not limited to: allergic reaction, bleeding, perforation or infection, and after all pertinent questions were answered to the patients satisfaction, the francisco ent/relatives signed witnessed informed consent. Following this, premedication was administered slowly IV push under careful ca rdiovascular and respiratory monitoring with pulse oximetry, automatic blood pressure, and quality assurance monitor chassis. Once the sedative effect was achieved the patient was place in the prone position in the radiology special procedures suite; the side viewing panendoscope was introduced and advanced under visual control. Careful examination of the upper gastrointestinal tract, both on insertion as well as withdrawal of the instrument disclosed the following findings: Esophagus: The mucosa of the entire appears within normal limits. There is no evidence of esophagitis, varices, neoplasm or stricture. No Hiatal Hernia identified. Stomach: Upon entrance to the stomach air was insufflated, the gastric vann distended normally, the mucosa of the fundus, body and antrum of the stomach was carefully examined both head-on and on retroflexion, and shows no abnormalities. There is no evidence of gastritis, ulcers, or neoplasm. Pylorus: The pylorus appears patent and within normal limits, with no evidence of gastric outlet obstruction. Duodenum: The duodenal mucosa was carefully examined in the duodenal bulb as well as the second portion of the duodenum and appears unremarkable with no evidence of duodenitis, ulcer or neoplasm. Ampulla of vater: The ampulla of Vater was identified and carefully examined appearing within normal limits. Cannulation: At this point cannulation was accomplished with the following fluoroscopic findings: Pancreatogram: Avoided. Cholangiogram: Significant dilatation of the biliary tree with an estimated maximum diameter of 18 mm. No filling defects appear to be present. The distal portion of the common bile duct ends abruptly and there appears to be poor emptying. Standard sphincterotomy was performed. A balloon catheter measuring 15-18 mm was used to sweep the biliary tree multiplications no stones or sludge were present. Improved emptying is noted at the end of the procedure. The instrument was then withdrawn the patient tolerated the procedure well and was transfer out of the endoscopy suite awake, and in good condition to continue to recover under observation. Copies To: CC: KIAN MATHEW MD ; KIAN MATHEW MD May 20, 2018 17:46
[2018-05-20] MEDS: METOCLOPRAMIDE 10 MG INJ IV SCH ×2 (18:12→23:34)
--- NOTE | 2018-05-20 19:25 | CONS ---
Assessment/Plan Assessment/Plan Assessment/Plan (Daily) The patient's abdominal examination is benign. There are no gallstones. The patient has a positive HIDA scan suggesting a chronic hydrops. I do not recommend any elective surgery for this patient who has portal hypertension and cirrhosis. In this case I believe the risks far outweigh any benefits. He should continue to be treated medically. Consultation Date/Type/Reason Admit Date/Time May 13, 2018 at 20:53 Date of Consultation: May 20, 2018 Type of Consult General surgery Reason for Consultation Possible cholecystitis Date/Time of Note DATE: 05/20/18 TIME: 19:13 Hx of Present Illness The patient is a 62-year-old gentleman who was admitted several days ago for altered mental status. He has known cirrhosis, hepatitis C, alcoholism and drug dependency. Liver function abnormalities were noted during this hospitalization which led to the patient having an ERCP today. Although he has no gallstones a HIDA scan done during this admission shows nonvisualized gallbladder. He currently is complaining of no abdominal pain. Constitutional: no complaints Eyes: no complaints ENT: no complaints Respiratory: no complaints Cardiovascular: no complaints Gastrointestinal: no complaints Genitourinary: no complaints Musculoskeletal: no complaints Skin: no complaints Neurologic: no complaints Past Medical History Medical History: other (Unreliable) Home Meds Reported Medications Levetiracetam* (Keppra*) 1,000 Mg Tablet, 1000 MG PO BID, TAB 05/13/18 Gabapentin* (Gabapentin*) 300 Mg Capsule, 300 MG PO BID, #60 CAP 05/13/18 Famotidine* (Famotidine*) 40 Mg Tablet, 40 MG PO HS, #30 TAB 05/13/18 Furosemide* (Furosemide*) 20 Mg Tablet, 20 MG PO DAILY, #60 TAB 05/13/18 Spironolactone* (Aldactone*) 50 Mg Tablet, 50 MG PO DAILY, #30 TAB 05/13/18 Folic Acid* (Folic Acid*) 1 Mg Tablet, 1 MG PO DAILY 05/13/18 Hydrocodone/Acetaminophen ([place] 5-325 Tablet) 1 Each Tablet, 1 EACH PO Q12 PRN for SEVERE PAIN LEVEL 7-10, TAB 05/13/18 Medications Current Medications IV Flush (NS 3 ml) 3 ml PER PROTOCOL IV ; Start 05/14/18 at 00:00 Lorazepam (Ativan) 1 mg Q1H PRN IV CONTROL WITHDRAWAL SYMPTOMS; Start 05/14/18 at 00:00 Ondansetron HCl (Zofran Inj) 4 mg Q6H PRN IV NAUSEA/VOMITING; Start 05/14/18 at 00:00 Albuterol/ Ipratropium (Duoneb) 3 ml Q2H RESP THERAPY PRN HHN SHORTNESS OF BREATH Last administered on 05/19/18 15:11; Admin Dose 3 ML; Start 05/14/18 at 00:00 Levetiracetam 100 ml @ 400 mls/hr Q12 IVPB Last administered on 05/20/18 08:48; Admin Dose 400 MLS/HR; Start 05/14/18 at 09:00 Vancomycin HCl (Vanco Iv Per Pharmacy) VANCOMYCIN PER PHARMACY PER PROTOCOL XX ; Start 05/14/18 at 07:00; Stop 05/22/18 at 23:59 Cefepime HCl 50 ml @ 100 mls/hr Q12 IVPB Last administered on 05/20/18 08:48; Admin Dose 100 MLS/HR; Start 05/14/18 at 09:00; Stop 05/22/18 at 23:59 Gabapentin (Neurontin) 300 mg BID PO Last administered on 05/20/18 08:48; Admin Dose 300 MG; Start 05/14/18 at 10:00 Methadone HCl (Methadone) 20 mg DAILY PO Last administered on 05/18/18 08:21; Admin Dose 20 MG; Start 05/14/18 at 12:00; Status Hold Acetaminophen/ Hydrocodone Bitart ([place] (5/325)) 1 tab Q4H PRN PO MODERATE PAIN LEVEL 4-6 Last administered on 05/19/18 23:37; Admin Dose 1 TAB; Start 05/16/18 at 17:00 Vancomycin HCl 1.25 gm/Sodium Chloride 250 ml @ 83.333 mls/ hr Q24H IVPB Last administered on 05/19/18 20:51; Admin Dose 83.333 MLS/HR; Start 05/17/18 at 20:00; Stop 05/22/18 at 23:59 Albuterol/ Ipratropium (Duoneb) 3 ml Q4H RESP THERAPY HHN Last administered on 05/20/18 13:54; Admin Dose 3 ML; Start 05/19/18 at 01:00 Metoclopramide HCl (Reglan) 10 mg Q6 IV Last administered on 05/20/18at 18:12; Admin Dose 10 MG; Start 05/20/18 at 18:00 Allergies: Coded Allergies: Unable to Assess (Verified Allergy, Severe, 05/13/18) Past Surgical History Past Surgical Hx: other (Unreliable) Social History Smoking Status: Current every day smoker Drug Use: heroin (Last used 2 years ago) Exam/Review of Systems Exam Vitals Vital Signs Date Temp Pulse Resp B/P (MAP) Pulse Ox O2 O2 Flow FiO2 Time Delivery Rate 05/20/18 98.5 75 24 123/65 96 19:09 (84) 05/20/18 4.0 17:58 05/20/18 Nasal 16:51 Cannula Intake and Output 05/19/18 05/19/18 05/20/18 1515:00 23:00 07:00 IntakeIntake Total 300 ml 1050 ml 300 ml OutputOutput Total 550 ml 450 ml BalanceBalance -250 ml 600 ml 300 ml Constitutional: other (Confused) Psych: confusion Head: normocephalic Eyes: nl conjunctiva ENMT: nl external ears & nose Neck: supple Respiratory: clear to auscultation Cardiovascular: regular rate and rhythm Gastrointestinal: soft Musculoskeletal: nl extremities to inspection Extremities: normal pulses Results Result Diagram: 05/20/18 0635 05/20/18 0635 Results 24hrs Laboratory Tests Test 05/20/18 06:35 White Blood Count 6.1 # Red Blood Count 3.12 L Hemoglobin 9.8 L Hematocrit 30.2 L Mean Corpuscular Volume 96.8 Mean Corpuscular Hemoglobin 31.4 Mean Corpuscular Hemoglobin Concent 32.5 Red Cell Distribution Width 17.4 H Platelet Count 124 L Mean Platelet Volume 9.9 Immature Granulocytes % 0.300 Neutrophils % 58.0 Lymphocytes % 17.1 Monocytes % 18.5 H Eosinophils % 5.4 Basophils % 0.7 Nucleated Red Blood Cells % 0.0 Immature Granulocytes # 0.020 Neutrophils # 3.5 Lymphocytes # 1.0 Monocytes # 1.1 H Eosinophils # 0.3 Basophils # 0.0 Nucleated Red Blood Cells # 0.0 Sodium Level 138 Potassium Level 4.0 Chloride Level 106 Carbon Dioxide Level 27 Anion Gap 5 Blood Urea Nitrogen 22 H Creatinine 0.68 Est Glomerular Filtrat Rate mL/min > 60 Glucose Level 104 Calcium Level 7.4 L Phosphorus Level 3.3 Magnesium Level 1.9 Medications Medication Current Medications IV Flush (NS 3 ml) 3 ml PER PROTOCOL IV ; Start 05/14/18 at 00:00 Lorazepam (Ativan) 1 mg Q1H PRN IV CONTROL WITHDRAWAL SYMPTOMS; Start 05/14/18 at 00:00 Ondansetron HCl (Zofran Inj) 4 mg Q6H PRN IV NAUSEA/VOMITING; Start 05/14/18 at 00:00 Albuterol/ Ipratropium (Duoneb) 3 ml Q2H RESP THERAPY PRN HHN SHORTNESS OF BREATH Last administered on 05/19/18 15:11; Admin Dose 3 ML; Start 05/14/18 at 00:00 Levetiracetam 100 ml @ 400 mls/hr Q12 IVPB Last administered on 05/20/18 08:48; Admin Dose 400 MLS/HR; Start 05/14/18 at 09:00 Vancomycin HCl (Vanco Iv Per Pharmacy) VANCOMYCIN PER PHARMACY PER PROTOCOL XX ; Start 05/14/18 at 07:00; Stop 05/22/18 at 23:59 Cefepime HCl 50 ml @ 100 mls/hr Q12 IVPB Last administered on 05/20/18 08:48; Admin Dose 100 MLS/HR; Start 05/14/18 at 09:00; Stop 05/22/18 at 23:59 Gabapentin (Neurontin) 300 mg BID PO Last administered on 05/20/18 08:48; Admin Dose 300 MG; Start 05/14/18 at 10:00 Methadone HCl (Methadone) 20 mg DAILY PO Last administered on 05/18/18 08:21; Admin Dose 20 MG; Start 05/14/18 at 12:00; Status Hold Acetaminophen/ Hydrocodone Bitart ([place] (5/325)) 1 tab Q4H PRN PO MODERATE PAIN LEVEL 4-6 Last administered on 05/19/18 23:37; Admin Dose 1 TAB; Start 05/16/18 at 17:00 Vancomycin HCl 1.25 gm/Sodium Chloride 250 ml @ 83.333 mls/ hr Q24H IVPB Last administered on 05/19/18 20:51; Admin Dose 83.333 MLS/HR; Start 05/17/18 at 20:00; Stop 05/22/18 at 23:59 Albuterol/ Ipratropium (Duoneb) 3 ml Q4H RESP THERAPY HHN Last administered on 05/20/18at 13:54; Admin Dose 3 ML; Start 05/19/18 at 01:00 Metoclopramide HCl (Reglan) 10 mg Q6 IV Last administered on 05/20/18at 18:12; Admin Dose 10 MG; Start 05/20/18 at 18:00 CRISTINA CAMARGO MD May 20, 2018 19:23
[2018-05-20] MEDS: VANCOMYCIN HCL 1.25 GM in SOD CHLORIDE 0.9% 250 ML IVPB SCH (22:32)
[2018-05-20] MEDS: ALBUTEROL/IPRATROPIUM (NEB) 3 ML AMP HHN PRN (23:48)
[2018-05-21 02:00] VITALS: BP 108/63; PULSE 70; RESP 20
[2018-05-21] MEDS ORDERED: PENDING SANTYL ORDER FOR WOUND CARE XX PRN (04:00)
[2018-05-21] MEDS: ALBUTEROL/IPRATROPIUM (NEB) 3 ML AMP HHN SCH ×5 (04:05→20:57)
[2018-05-21] MEDS ORDERED: SOD CHLORIDE 0.9% 1,000 ML IV SCH (04:30)
[2018-05-21] MEDS: METOCLOPRAMIDE 10 MG INJ IV SCH ×3 (05:00→17:07)
[2018-05-21 07:57] VITALS: BP 100/58; PULSE 68; RESP 20
[2018-05-21] MEDS: LEVETIRACETAM 1000 MG (PMX) 100 ML IVPB SCH ×2 (08:23→21:07)
[2018-05-21] MEDS: CEFEPIME 1GM/50 ML (PMX) 50 ML IVPB SCH ×2 (08:24→20:21)
[2018-05-21] MEDS: GABAPENTIN 300 MG CAP PO SCH ×2 (08:24→20:21)
--- NOTE | 2018-05-21 08:35 | QN ---
Documentation Comment Afebrile throughout No abdominal pain Abdominal examination is benign WBC normal No further surgical recommendations at this time. MRCP for this patient is pending CRISTINA CAMARGO MD May 21, 2018 08:34
[2018-05-21 14:00] VITALS: BP 98/52; PULSE 77; RESP 19
--- NOTE | 2018-05-21 15:34 | PN ---
Date/Time of Note Date/Time of Note DATE: 05/21/18 TIME: 15:28 Assessment/Plan VTE Prophylaxis Risk score (from Ns)>0 risk: 7 SCD applied (from Ns): No SCD contraindicated: bilateral LE trauma Pharmacological prophylaxis: heparin Lines/Catheters IV [facility]from [facility] Mid Line Urinary Cath still in place: No Assessment/Plan Assessment/Plan Assessment: Suspected liver cirrhosis -Untreated hepatitis C versus alcohol abuse Upper abdominal pain Common bile duct dilation on imaging Status post ERCP 05/20/18 -Significant dilatation of the biliary tree with poor emptying consistent with papillary stenosis Post sphincterotomy and balloon sweeping of the biliary tree Anemia Thrombocytopenia UTI Wound to left lower extremity Scrotal edema Hx of IV drug abuse Plan: Check CMP tomorrow Regular diet Monitor labs Discussed with Dr. Ness PHYSICAL EXAMINATION: GENERAL: Lethargic, oriented to name SKIN: multiple scars, wound to LLE dressing in place. EYES: Pupils equal reactive to light, no discharge. EARS/NOSE AND THROAT: Ears normal, nose normal. NECK: Supple, no masses. CHEST: Inspection within normal limits. CARDIOVASCULAR: Heart: Regular rate and rhythm RESPIRATORY: Lungs clear to auscultation GASTROINTESTINAL AND LIVER: Abdomen: Soft, upper and tenderness, worse to RUQ, + distended, no hernias, no masses, no organomegaly, + ascites, no guarding, no rebound tenderness, normoactive bowel sounds. Rectal: Deferred. GENITOURINARY: scrotal edema EXTREMITIES: No cyanosis, clubbing or edema. Result Diagram: 05/20/18 0635 05/20/18 0635 Results 24hrs Laboratory Tests Test 05/20/18 19:30 Vancomycin Level Trough 10.5 Exam/Review of Systems Exam Vitals Vital Signs Date Temp Pulse Resp B/P (MAP) Pulse Ox O2 O2 Flow FiO2 Time Delivery Rate 05/21/18 Nasal 4.0 09:00 Cannula 05/21/18 98.0 68 20 100/58 94 07:57 (72) Intake and Output 05/20/18 05/20/18 05/21/18 1515:00 23:00 07:00 IntakeIntake Total 450 ml 350 ml OutputOutput Total 600 ml 1 ml BalanceBalance -150 ml 349 ml Results Results 24hrs Laboratory Tests Test 05/20/18 19:30 Vancomycin Level Trough 10.5 Medications Medication Current Medications IV Flush (NS 3 ml) 3 ml PER PROTOCOL IV ; Start 05/14/18 at 00:00 Lorazepam (Ativan) 1 mg Q1H PRN IV CONTROL WITHDRAWAL SYMPTOMS; Start 05/14/18 at 00:00 Ondansetron HCl (Zofran Inj) 4 mg Q6H PRN IV NAUSEA/VOMITING; Start 05/14/18 at 00:00 Albuterol/ Ipratropium (Duoneb) 3 ml Q2H RESP THERAPY PRN HHN SHORTNESS OF BREATH Last administered on 05/20/18 23:48; Admin Dose 3 ML; Start 05/14/18 at 00:00 Levetiracetam 100 ml @ 400 mls/hr Q12 IVPB Last administered on 05/21/18 08:23; Admin Dose 400 MLS/HR; Start 05/14/18 at 09:00 Cefepime HCl 50 ml @ 100 mls/hr Q12 IVPB Last administered on 05/21/18 08:24; Admin Dose 100 MLS/HR; Start 05/14/18 at 09:00; Stop 05/22/18 at 23:59 Gabapentin (Neurontin) 300 mg BID PO Last administered on 05/21/18 08:24; Admin Dose 300 MG; Start 05/14/18 at 10:00 Acetaminophen/ Hydrocodone Bitart ([place] (5/325)) 1 tab Q4H PRN PO MODERATE PAIN LEVEL 4-6 Last administered on 05/19/18 23:37; Admin Dose 1 TAB; Start 05/16/18 at 17:00 Albuterol/ Ipratropium (Duoneb) 3 ml Q4H RESP THERAPY HHN Last administered on 05/21/18 04:05; Admin Dose 3 ML; Start 05/19/18 at 01:00 Metoclopramide HCl (Reglan) 10 mg Q6 IV Last administered on 05/21/18 11:08; Admin Dose 10 MG; Start 05/20/18 at 18:00 Miscellaneous Information (Pending Santyl Order For Wound Care) This patient borges... PRN PRN XX WOUND CARE; Start 05/21/18 at 04:00 VALERIA SAAVGE NP May 21, 2018 15:34
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
[2018-05-21 20:00] VITALS: BP 103/59; PULSE 83; RESP 18
[2018-05-22] MEDS: ALBUTEROL/IPRATROPIUM (NEB) 3 ML AMP HHN SCH ×6 (00:20→19:11)
[2018-05-22] MEDS: METOCLOPRAMIDE 10 MG INJ IV SCH ×4 (00:35→17:42)
[2018-05-22 02:00] VITALS: BP 121/60; PULSE 103; RESP 19
[2018-05-22 08:20] VITALS: BP 112/55; PULSE 89; RESP 18
[2018-05-22] MEDS: HYDROCODONE/APAP (5/325) TAB PO PRN ×2 (09:28→19:47)
[2018-05-22] MEDS: THIAMINE 100 MG TAB PO SCH (09:29)
[2018-05-22] MEDS: GABAPENTIN 300 MG CAP PO SCH ×2 (09:29→20:05)
[2018-05-22] MEDS: CEFEPIME 1GM/50 ML (PMX) 50 ML IVPB SCH (09:41)
[2018-05-22] MEDS: LEVETIRACETAM 1000 MG (PMX) 100 ML IVPB SCH ×2 (10:16→21:02)
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
[2018-05-22 14:00] VITALS: BP 107/60; PULSE 98; RESP 18
--- NOTE | 2018-05-22 15:49 | PN ---
Date/Time of Note Date/Time of Note DATE: 05/22/18 TIME: 15:35 Assessment/Plan VTE Prophylaxis Risk score (from Ns)>0 risk: 5 SCD applied (from Ns): Yes Pharmacological prophylaxis: heparin Lines/Catheters IV Catheter Type (from [facility]): midline Urinary Cath still in place: No Assessment/Plan Assessment/Plan Assessment: Suspected liver cirrhosis -Untreated hepatitis C versus alcohol abuse Upper abdominal pain Common bile duct dilation on imaging Status post ERCP 05/20/18 -Significant dilatation of the biliary tree with poor emptying consistent with papillary stenosis Post sphincterotomy and balloon sweeping of the biliary tree Anemia Thrombocytopenia UTI Wound to left lower extremity Scrotal edema Hx of IV drug abuse Plan: Regular diet Monitor labs Continue current regimen Discussed with Dr. Ness Subjective: The patient denies any abdominal pain at rest, nausea or vomiting, tolerating diet. Up in chair. Per nurse had bowel movements today. PHYSICAL EXAMINATION: GENERAL: Lethargic, oriented to name and place only. SKIN: multiple scars, wound to LLE dressing in place. EYES: Pupils equal reactive to light, no discharge. EARS/NOSE AND THROAT: Ears normal, nose normal. NECK: Supple, no masses. CHEST: Inspection within normal limits. CARDIOVASCULAR: Heart: Regular rate and rhythm RESPIRATORY: Lungs clear to auscultation GASTROINTESTINAL AND LIVER: Abdomen: Soft, moderately distended, tender in right upper quadrant, +ascites no hernias, no masses, no organomegaly, no guarding, no rebound tenderness, normoactive bowel sounds. Rectal: Deferred. GENITOURINARY: scrotal edema EXTREMITIES: No cyanosis, clubbing or edema. Result Diagram: 05/22/18 0426 05/22/18 0426 Results 24hrs Laboratory Tests Test 05/22/18 04:26 05/22/18 12:36 05/22/18 12:42 White Blood Count 10.2 # Red Blood Count 3.17 L Hemoglobin 10.2 L Hematocrit 30.8 L Mean Corpuscular Volume 97.2 Mean Corpuscular Hemoglobin 32.2 Mean Corpuscular 33.1 Hemoglobin Concent Red Cell Distribution Width 16.5 H Platelet Count 177 # Mean Platelet Volume 10.2 Immature Granulocytes % 0.500 H Neutrophils % 76.1 Lymphocytes % 8.1 L Monocytes % 14.6 H Eosinophils % 0.2 Basophils % 0.5 Nucleated Red Blood Cells % 0.0 Immature Granulocytes # 0.050 H Neutrophils # 7.7 H Lymphocytes # 0.8 Monocytes # 1.5 H Eosinophils # 0.0 Basophils # 0.1 Nucleated Red Blood Cells # 0.0 Sodium Level 140 Potassium Level 4.7 Chloride Level 108 Carbon Dioxide Level 27 Anion Gap 5 Blood Urea Nitrogen 25 H Creatinine 0.59 L Est Glomerular Filtrat > 60 Rate mL/min Glucose Level 106 Calcium Level 7.9 L Phosphorus Level 2.2 #L Magnesium Level 2.2 Total Bilirubin 0.4 Direct Bilirubin 0.00 Indirect Bilirubin 0.4 Aspartate Amino 58 H Transf (AST/SGOT) Alanine 21 Aminotransferase (ALT/SGPT) Alkaline Phosphatase 131 H Total Protein 5.8 L Albumin 2.1 L Globulin 3.70 H Albumin/Globulin Ratio 0.56 Lab Scanned Report REFERENCE LAB REFERENCE LAB CC: KIAN NESS MD ; Exam/Review of Systems Exam Vitals Vital Signs Date Temp Pulse Resp B/P (MAP) Pulse Ox O2 O2 Flow FiO2 Time Delivery Rate 05/22/18 4.0 14:43 05/22/18 89 20 94 Nasal 14:09 Cannula 05/22/18 98.0 112/55 08:20 (74) Intake and Output 05/21/18 05/21/18 05/22/18 1515:00 23:00 07:00 IntakeIntake Total 150 ml 650 ml 480 ml OutputOutput Total 300 ml 800 ml 1200 ml BalanceBalance -150 ml -150 ml -720 ml Results Results 24hrs Laboratory Tests Test 05/22/18 04:26 05/22/18 12:36 05/22/18 12:42 White Blood Count 10.2 # Red Blood Count 3.17 L Hemoglobin 10.2 L Hematocrit 30.8 L Mean Corpuscular Volume 97.2 Mean Corpuscular Hemoglobin 32.2 Mean Corpuscular 33.1 Hemoglobin Concent Red Cell Distribution Width 16.5 H Platelet Count 177 # Mean Platelet Volume 10.2 Immature Granulocytes % 0.500 H Neutrophils % 76.1 Lymphocytes % 8.1 L Monocytes % 14.6 H Eosinophils % 0.2 Basophils % 0.5 Nucleated Red Blood Cells % 0.0 Immature Granulocytes # 0.050 H Neutrophils # 7.7 H Lymphocytes # 0.8 Monocytes # 1.5 H Eosinophils # 0.0 Basophils # 0.1 Nucleated Red Blood Cells # 0.0 Sodium Level 140 Potassium Level 4.7 Chloride Level 108 Carbon Dioxide Level 27 Anion Gap 5 Blood Urea Nitrogen 25 H Creatinine 0.59 L Est Glomerular Filtrat > 60 Rate mL/min Glucose Level 106 Calcium Level 7.9 L Phosphorus Level 2.2 #L Magnesium Level 2.2 Total Bilirubin 0.4 Direct Bilirubin 0.00 Indirect Bilirubin 0.4 Aspartate Amino 58 H Transf (AST/SGOT) Alanine 21 Aminotransferase (ALT/SGPT) Alkaline Phosphatase 131 H Total Protein 5.8 L Albumin 2.1 L Globulin 3.70 H Albumin/Globulin Ratio 0.56 Lab Scanned Report REFERENCE LAB REFERENCE LAB Medications Medication Current Medications IV Flush (NS 3 ml) 3 ml PER PROTOCOL IV ; Start 05/14/18 at 00:00 Ondansetron HCl (Zofran Inj) 4 mg Q6H PRN IV NAUSEA/VOMITING; Start 05/14/18 at 00:00 Albuterol/ Ipratropium (Duoneb) 3 ml Q2H RESP THERAPY PRN HHN SHORTNESS OF BREATH Last administered on 05/20/18 23:48; Admin Dose 3 ML; Start 05/14/18 at 00:00 Levetiracetam 100 ml @ 400 mls/hr Q12 IVPB Last administered on 05/22/18 10:16; Admin Dose 400 MLS/HR; Start 05/14/18 at 09:00 Gabapentin (Neurontin) 300 mg BID PO Last administered on 05/22/18 09:29; Admin Dose 300 MG; Start 05/14/18 at 10:00 Acetaminophen/ Hydrocodone Bitart ([place] (5/325)) 1 tab Q4H PRN PO MODERATE PAIN LEVEL 4-6 Last administered on 05/22/18 09:28; Admin Dose 1 TAB; Start 05/16/18 at 17:00 Albuterol/ Ipratropium (Duoneb) 3 ml Q4H RESP THERAPY HHN Last administered on 05/22/18 14:08; Admin Dose 3 ML; Start 05/19/18 at 01:00 Metoclopramide HCl (Reglan) 10 mg Q6 IV Last administered on 05/22/18 11:49; Admin Dose 10 MG; Start 05/20/18 at 18:00 [facility] This patient borges... PRN PRN XX WOUND CARE; Start 05/21/18 at 04:00 Thiamine HCl (Vitamin B1) 100 mg DAILY PO Last administered on 05/22/18at 09:29; Admin Dose 100 MG; Start 05/22/18 at 09:00 VALERIA SAVAGE NP May 22, 2018 15:46
[2018-05-22 20:00] VITALS: BP 122/64; PULSE 96; RESP 19
[2018-05-22] MEDS: LORAZEPAM 2 MG INJ IV PRN (21:29)
[2018-05-23] MEDS: METOCLOPRAMIDE 10 MG INJ IV SCH ×4 (00:19→17:29)
[2018-05-23] MEDS: ALBUTEROL/IPRATROPIUM (NEB) 3 ML AMP HHN SCH ×6 (00:48→20:28)
[2018-05-23 02:00] VITALS: BP 119/61; PULSE 91; RESP 19
[2018-05-23] MEDS: ALBUTEROL/IPRATROPIUM (NEB) 3 ML AMP HHN PRN (03:27)
[2018-05-23] MEDS: HYDROCODONE/APAP (5/325) TAB PO PRN ×3 (05:10→20:08)
[2018-05-23] MEDS: LORAZEPAM 2 MG INJ IV PRN ×2 (05:10→22:56)
[2018-05-23] MEDS ORDERED: morphine 2 MG INJ IV STA (05:59)
[2018-05-23 08:17] VITALS: BP 102/52; PULSE 106; RESP 18
[2018-05-23] MEDS: THIAMINE 100 MG TAB PO SCH (09:13)
[2018-05-23] MEDS: GABAPENTIN 300 MG CAP PO SCH ×2 (09:13→20:08)
[2018-05-23] MEDS: CHLORDIAZEPOXIDE 25 MG CAP PO SCH ×3 (09:13→20:08)
[2018-05-23] MEDS: LEVETIRACETAM 1000 MG (PMX) 100 ML IVPB SCH ×2 (09:13→20:08)
[2018-05-23] MEDS ORDERED: FUROSEMIDE 20 MG INJ IV SCH (10:30)
--- NOTE | 2018-05-23 10:32 | PN ---
Date/Time of Note Date/Time of Note DATE: 05/23/18 TIME: 10:32 Assessment/Plan VTE Prophylaxis Risk score (from Ns)>0 risk: 6 SCD applied (from Nsg): Yes Pharmacological prophylaxis: NA/contraindicated Pharm contraindication: thrombocytopenia (improving though) Lines/Catheters IV Catheter Type (from Nrs): Mid Line Urinary Cath still in place: No Assessment/Plan Hospital Course S: sob, orthopnea o: Constitutional: alert, oriented, unkempt, tachypneic, orthopneic Head: atraumatic, normocephalic Neck: non-tender, supple Respiratory: diminished, wheezing Cardiovascular: tachy, systolic M Gastrointestinal: S/ NT / ND / +BS / scrotal edema ++ Extremities: tamir Trace edema, good radial pulses assessment and plan: 62 yo man with cirrhosis admitted with AMS and RLE wound currently managed as follows : Toxic/alcoholic encephalopathy: now improving - Likely related to alcohol intoxication especially when combined with his home medications, one of them Vicodin. He also takes Neurontin. - Patient seems to have an element of confabulation. May be Wernicke's encephalopathy. Started low dose oral thiamine. -symptoms improved, patient fairly appropriate at this time - Blood alcohol level very elevated on admission - s/p Librium taper. Not requiring Ativan. s/p banana bag. Acalculous Cholecystitis -+HIDA -s/p ERCP on 05/20 with no stones or sludge; papillary stenosis -Currently patient has no RUQ pain, tolerating diet -continue abx -f/u with surgeon re: definitive plan Biliary tree dilation with papillary stenosis seen on ERCP -f/u biopsies ? -s/p sphincterotomy and ballon sweeping -no hyperbilirubinemia -GI following, f/u recs Liver cirrhosis (alcoholic / Hep C / Hep B) -mild transaminities to ast >>alt and + alk phos -indices ae stable, hence likely chronic -continue monitoring Hep C: -f/u RNA -not a good candidate for treatment based on social issues, defer to GI +Hep B core ab -chronic infection? Scrotal edema - Likely from anasarca. CT negative for subQ gas. keep elevated Chronic Sz d/o -maintained on home Keppra Hx of IVDA Chronic alcoholism -s/p cessation counselling, resources provided by [facility] Acute resp distress -likely 2/2 fluid overload, -stop all IVF, CXR , IV lasix 20mg x1 / 2D echo / BNP Dispo: -SOB and tachypnea with orthopnea, needs further workup -need to f/u definitive plan for Gb with surgery -also this homeless patient is very weak and frail; can barely sit up on his own. Social work looking for next of kin. Will need placement. Result Diagram: 05/22/18 0426 05/22/18 0426 Results 24hrs Laboratory Tests Test 05/22/18 12:36 05/22/18 12:42 Lab Scanned Report REFERENCE LAB REFERENCE LAB Exam/Review of Systems Exam Vitals Vital Signs Date Temp Pulse Resp B/P (MAP) Pulse Ox O2 O2 Flow FiO2 Time Delivery Rate 05/23/18 98.0 106 18 102/52 94 08:17 (69) 05/23/18 Nasal 4.0 08:00 Cannula Intake and Output 05/22/18 05/22/18 05/23/18 1515:00 23:00 07:00 IntakeIntake Total 630 ml 340 ml 600 ml OutputOutput Total 400 ml 880 ml BalanceBalance 230 ml 340 ml -280 ml Results Results 24hrs Laboratory Tests Test 05/22/18 12:36 05/22/18 12:42 Lab Scanned Report REFERENCE LAB REFERENCE LAB Medications Medication Current Medications IV Flush (NS 3 ml) 3 ml PER PROTOCOL IV ; Start 05/14/18 at 00:00 Ondansetron HCl (Zofran Inj) 4 mg Q6H PRN IV NAUSEA/VOMITING; Start 05/14/18 at 00:00 Albuterol/ Ipratropium (Duoneb) 3 ml Q2H RESP THERAPY PRN HHN SHORTNESS OF BREATH Last administered on 05/23/18at 03:27; Admin Dose 3 ML; Start 05/14/18 at 00:00 Levetiracetam 100 ml @ 400 mls/hr Q12 IVPB Last administered on 05/23/18at 09:13; Admin Dose 400 MLS/HR; Start 05/14/18 at 09:00 Gabapentin (Neurontin) 300 mg BID PO Last administered on 05/23/18at 09:13; Admin Dose 300 MG; Start 05/14/18 at 10:00 Acetaminophen/ Hydrocodone Bitart ([place] (5/325)) 1 tab Q4H PRN PO MODERATE PAIN LEVEL 4-6 Last administered on 05/23/18 09:12; Admin Dose 1 TAB; Start 05/16/18 at 17:00 Albuterol/ Ipratropium (Duoneb) 3 ml Q4H RESP THERAPY HHN Last administered on 05/23/18 10:07; Admin Dose 3 ML; Start 05/19/18 at 01:00 Metoclopramide HCl (Reglan) 10 mg Q6 IV Last administered on 05/23/18 05:10; Admin Dose 10 MG; Start 05/20/18 at 18:00 Miscellaneous Information (Pending Santyl Order For Wound Care) This patient borges... PRN PRN XX WOUND CARE; Start 05/21/18 at 04:00 Thiamine HCl (Vitamin B1) 100 mg DAILY PO Last administered on 05/23/18 09:13; Admin Dose 100 MG; Start 05/22/18 at 09:00 Lorazepam (Ativan) 1 mg Q3 PRN IV CONTROL WITHDRAWAL SYMPTOMS Last administered on 05/23/18 05:10; Admin Dose 1 MG; Start 05/22/18 at 20:30 Chlordiazepoxide (Librium) 50 mg TID PO Last administered on 05/23/18 09:13; Admin Dose 50 MG; Start 05/23/18 at 09:00; Stop 05/24/18 at 00:00 Furosemide (Lasix) 20 mg ONCE ONCE IV ; Start 05/23/18 at 10:30; Stop 05/23/18 at 10:31; Status GENNARO ALVAREZ May 23, 2018 10:32
[2018-05-23 12:48] VITALS: BP 131/69; PULSE 90
[2018-05-23 14:14] VITALS: BP 122/62; PULSE 99; RESP 16
--- NOTE | 2018-05-23 14:31 | PN ---
Date/Time of Note Date/Time of Note DATE: 05/23/18 TIME: 14:30 Assessment/Plan VTE Prophylaxis Risk score (from Ns)>0 risk: 6 SCD applied (from Ns): Yes Pharmacological prophylaxis: other (scds) Lines/Catheters [facility]from [facility] Mid Line Urinary Cath still in place: No Assessment/Plan Hospital Course Assessment/Plan Assessment: Suspected liver cirrhosis -Untreated hepatitis C versus alcohol abuse -Hepatitis B core AB- reactive (IgM non-reactive) Upper abdominal pain Common bile duct dilation on imaging Status post ERCP 05/20/18 -Significant dilatation of the biliary tree with poor emptying consistent with papillary stenosis -Post sphincterotomy and balloon sweeping of the biliary tree Normocytic Anemia Thrombocytopenia- resolved Encephalopathy, toxic UTI Wound to left lower extremity Scrotal edema Hx of IV drug abuse Elevated Lfts - Increase alk phos and AST today - will continue to monitor Plan: 2gm Na diet Start lactulose 20 mg po BID, lasix and Aldactone - monitor labs Continue current regimen D/c planning per hospitalist- pt very weak will likely require placement Discussed with Dr. Ness/Hari Subjective: No over night events, no overt signs GI bleed. slight increase in Alk phos and AST Pt c/o lower abd/genital discomfort 2/2 to edema, will restart diuretics and continue to monitor PHYSICAL EXAMINATION: GENERAL: Lethargic, oriented to name and place only. SKIN: multiple scars, wound to LLE dressing in place. EYES: Pupils equal reactive to light, no discharge. EARS/NOSE AND THROAT: Ears normal, nose normal. NECK: Supple, no masses. CHEST: Inspection within normal limits. CARDIOVASCULAR: Heart: Regular rate and rhythm RESPIRATORY: Lungs clear to auscultation GASTROINTESTINAL AND LIVER: Abdomen: Soft, moderately distended, tender in right upper quadrant, +ascites, no hernias, no masses, no organomegaly, no guarding, no rebound tenderness, normoactive bowel sounds. Rectal: Deferred. GENITOURINARY: scrotal edema EXTREMITIES: No cyanosis, clubbing or edema. Result Diagram: 05/22/1842505/22/18425 Exam/Review of Systems Exam Vitals Vital Signs Date Temp Pulse Resp B/P (MAP) Pulse Ox O2 O2 Flow FiO2 Time Delivery Rate 05/23/18 97.7 99 16 122/62 91 14:14 (82) 05/23/18 Nasal 4 13:18 Cannula Intake and Output 05/22/18 05/22/18 05/23/18 1414:59 22:59 06:59 IntakeIntake Total 630 ml 340 ml 600 ml OutputOutput Total 400 ml 880 ml BalanceBalance 230 ml 340 ml -280 ml Medications Medication Current Medications IV Flush (NS 3 ml) 3 ml PER PROTOCOL IV ; Start 05/14/18 at 00:00 Ondansetron HCl (Zofran Inj) 4 mg Q6H PRN IV NAUSEA/VOMITING; Start 05/14/18 at 00:00 Albuterol/ Ipratropium (Duoneb) 3 ml Q2H RESP THERAPY PRN HHN SHORTNESS OF BREATH Last administered on 05/23/18 03:27; Admin Dose 3 ML; Start 05/14/18 at 00:00 Levetiracetam 100 ml @ 400 mls/hr Q12 IVPB Last administered on 05/23/18 09:13; Admin Dose 400 MLS/HR; Start 05/14/18 at 09:00 Gabapentin (Neurontin) 300 mg BID PO Last administered on 05/23/18 09:13; Admin Dose 300 MG; Start 05/14/18 at 10:00 Acetaminophen/ Hydrocodone Bitart ([place] (5/325)) 1 tab Q4H PRN PO MODERATE PAIN LEVEL 4-6 Last administered on 05/23/18 09:12; Admin Dose 1 TAB; Start 05/16/18 at 17:00 Albuterol/ Ipratropium (Duoneb) 3 ml Q4H RESP THERAPY HHN Last administered on 05/23/18 10:07; Admin Dose 3 ML; Start 05/19/18 at 01:00 Metoclopramide HCl (Reglan) 10 mg Q6 IV Last administered on 05/23/18 12:43; Admin Dose 10 MG; Start 05/20/18 at 18:00 Miscellaneous Information (Pending [facility] Order For Wound Care) This patient borges... PRN PRN XX WOUND CARE; Start 05/21/18 at 04:00 Thiamine HCl (Vitamin B1) 100 mg DAILY PO Last administered on 05/23/18 09:13; Admin Dose 100 MG; Start 05/22/18 at 09:00 Lorazepam (Ativan) 1 mg Q3 PRN IV CONTROL WITHDRAWAL SYMPTOMS Last administered on 05/23/18at 05:10; Admin Dose 1 MG; Start 05/22/18 at 20:30 Chlordiazepoxide (Librium) 50 mg TID PO Last administered on 05/23/18at 12:43; Admin Dose 50 MG; Start 05/23/18 at 09:00; Stop 05/24/18 at 00:00 CLARENCE OLIVAS May 23, 2018 14:31
[2018-05-23] MEDS: LACTULOSE 30ML CUP PO SCH (20:08)
[2018-05-23 20:30] VITALS: BP 117/59; PULSE 78; RESP 20
[2018-05-24] MEDS: ALBUTEROL/IPRATROPIUM (NEB) 3 ML AMP HHN SCH ×6 (00:08→20:39)
[2018-05-24] MEDS: METOCLOPRAMIDE 10 MG INJ IV SCH ×4 (00:21→19:36)
[2018-05-24 08:15] VITALS: BP 124/77; PULSE 87; RESP 20
[2018-05-24] MEDS ORDERED: FUROSEMIDE 20 MG TAB PO SCH (09:00)
[2018-05-24] MEDS: LEVETIRACETAM 1000 MG (PMX) 100 ML IVPB SCH (10:16)
[2018-05-24] MEDS: LACTULOSE 30ML CUP PO SCH ×2 (10:17→20:21)
[2018-05-24] MEDS: SPIRONOLACTONE 50 MG TAB PO SCH (10:17)
[2018-05-24] MEDS: GABAPENTIN 300 MG CAP PO SCH ×2 (10:18→20:20)
[2018-05-24] MEDS: THIAMINE 100 MG TAB PO SCH (10:18)
[2018-05-24] MEDS: HYDROCODONE/APAP (5/325) TAB PO PRN (10:19)
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
[2018-05-24 14:47] VITALS: BP 120/68; PULSE 84; RESP 20
--- NOTE | 2018-05-24 15:21 | PN ---
Date/Time of Note Date/Time of Note DATE: 05/24/18 TIME: 15:17 Assessment/Plan VTE Prophylaxis Risk score (from Ns)>0 risk: 4 SCD applied (from Ns): Yes Pharmacological prophylaxis: other (scds) Lines/Catheters [facility] Mid Line Urinary Cath still in place: No Assessment/Plan Hospital Course Assessment/Plan Assessment: Suspected liver cirrhosis -Untreated hepatitis C versus alcohol abuse- Currently RNA pending -Hepatitis B core AB- reactive (IgM non-reactive) Upper abdominal pain- improved Common bile duct dilation on imaging Status post ERCP 05/20/18 -Significant dilatation of the biliary tree with poor emptying consistent with papillary stenosis -Post sphincterotomy and balloon sweeping of the biliary tree Normocytic Anemia Thrombocytopenia- resolved Encephalopathy, toxic- improving UTI Wound to left lower extremity Scrotal edema- on diuretics Hx of IV drug abuse Elevated Lfts - Increase alk phos and AST today - will continue to monitor Plan: 2gm Na diet Continue lactulose 20 mg po BID, lasix and Aldactone - monitor labs Continue current regimen D/c planning per hospitalist- pt very weak will likely require placement No new GI recommendations Discussed with Dr. Ness/Hari Subjective: Pt remains, weak, currently appears comfortable Was started on diuretics yesterday, so far tolerating well, encourage po intake Continue close observation. PHYSICAL EXAMINATION: GENERAL: Oriented to name and place only. SKIN: multiple scars, wound to LLE dressing in place. EYES: Pupils equal reactive to light, no discharge. EARS/NOSE AND THROAT: Ears normal, nose normal. NECK: Supple, no masses. CHEST: Inspection within normal limits. CARDIOVASCULAR: Heart: Regular rate and rhythm RESPIRATORY: Lungs clear to auscultation GASTROINTESTINAL AND LIVER: Abdomen: Soft, moderately distended, tender in right upper quadrant, +ascites, no hernias, no masses, no organomegaly, no guarding, no rebound tenderness, normoactive bowel sounds. Rectal: Deferred. GENITOURINARY: scrotal edema EXTREMITIES: No cyanosis, clubbing or edema. Result Diagram: 05/24/18 0503 05/24/18 0503 Results 24hrs Laboratory Tests Test 05/24/18 05:03 White Blood Count 4.5 #L Red Blood Count 3.78 L Hemoglobin 12.0 L Hematocrit 36.7 L Mean Corpuscular Volume 97.1 Mean Corpuscular Hemoglobin 31.7 Mean Corpuscular Hemoglobin Concent 32.7 Red Cell Distribution Width 16.4 H Platelet Count 172 Mean Platelet Volume 9.6 Immature Granulocytes % 0.700 H Neutrophils % 54.7 Lymphocytes % 20.6 Monocytes % 16.0 H Eosinophils % 6.9 Basophils % 1.1 Nucleated Red Blood Cells % 0.0 Immature Granulocytes # 0.030 Neutrophils # 2.5 Lymphocytes # 0.9 Monocytes # 0.7 Eosinophils # 0.3 Basophils # 0.1 Nucleated Red Blood Cells # 0.0 Sodium Level 140 Potassium Level 4.7 Chloride Level 106 Carbon Dioxide Level 30 Anion Gap 4 L Blood Urea Nitrogen 20 Creatinine 0.58 L Est Glomerular Filtrat Rate mL/min > 60 Glucose Level 74 Calcium Level 8.4 Total Bilirubin 1.0 Direct Bilirubin 0.00 Indirect Bilirubin 1.0 Aspartate Amino Transf (AST/SGOT) 97 H Alanine Aminotransferase (ALT/SGPT) 30 Alkaline Phosphatase 129 H Total Protein 7.0 Albumin 2.6 L Globulin 4.40 H Albumin/Globulin Ratio 0.59 Exam/Review of Systems Exam Vitals Vital Signs Date Temp Pulse Resp B/P (MAP) Pulse Ox O2 O2 Flow FiO2 Time Delivery Rate 05/24/18 98.1 84 20 120/68 97 Nasal 4.0 14:47 (85) Cannula Intake and Output 05/23/18 05/23/18 05/24/18 1515:00 23:00 07:00 IntakeIntake Total 580 ml 120 ml 100 ml OutputOutput Total 200 ml 600 ml BalanceBalance 380 ml 120 ml -500 ml Results Results 24hrs Laboratory Tests Test 05/24/18 05:03 White Blood Count 4.5 #L Red Blood Count 3.78 L Hemoglobin 12.0 L Hematocrit 36.7 L Mean Corpuscular Volume 97.1 Mean Corpuscular Hemoglobin 31.7 Mean Corpuscular Hemoglobin Concent 32.7 Red Cell Distribution Width 16.4 H Platelet Count 172 Mean Platelet Volume 9.6 Immature Granulocytes % 0.700 H Neutrophils % 54.7 Lymphocytes % 20.6 Monocytes % 16.0 H Eosinophils % 6.9 Basophils % 1.1 Nucleated Red Blood Cells % 0.0 Immature Granulocytes # 0.030 Neutrophils # 2.5 Lymphocytes # 0.9 Monocytes # 0.7 Eosinophils # 0.3 Basophils # 0.1 Nucleated Red Blood Cells # 0.0 Sodium Level 140 Potassium Level 4.7 Chloride Level 106 Carbon Dioxide Level 30 Anion Gap 4 L Blood Urea Nitrogen 20 Creatinine 0.58 L Est Glomerular Filtrat Rate mL/min > 60 Glucose Level 74 Calcium Level 8.4 Total Bilirubin 1.0 Direct Bilirubin 0.00 Indirect Bilirubin 1.0 Aspartate Amino Transf (AST/SGOT) 97 H Alanine Aminotransferase (ALT/SGPT) 30 Alkaline Phosphatase 129 H Total Protein 7.0 Albumin 2.6 L Globulin 4.40 H Albumin/Globulin Ratio 0.59 Medications Medication Current Medications IV Flush (NS 3 ml) 3 ml PER PROTOCOL IV ; Start 05/14/18 at 00:00 Ondansetron HCl (Zofran Inj) 4 mg Q6H PRN IV NAUSEA/VOMITING; Start 05/14/18 at 00:00 Albuterol/ Ipratropium (Duoneb) 3 ml Q2H RESP THERAPY PRN HHN SHORTNESS OF BREATH Last administered on 05/23/18at 03:27; Admin Dose 3 ML; Start 05/14/18 at 00:00 Gabapentin (Neurontin) 300 mg BID PO Last administered on 05/24/18at 10:18; Admin Dose 300 MG; Start 05/14/18 at 10:00 Acetaminophen/ Hydrocodone Bitart ([place] (5/325)) 1 tab Q4H PRN PO MODERATE PAIN LEVEL 4-6 Last administered on 05/24/18 10:19; Admin Dose 1 TAB; Start 05/16/18 at 17:00 Albuterol/ Ipratropium (Duoneb) 3 ml Q4H RESP THERAPY HHN Last administered on 05/24/18 12:18; Admin Dose 3 ML; Start 05/19/18 at 01:00 Metoclopramide HCl (Reglan) 10 mg Q6 IV Last administered on 05/24/18at 13:49; Admin Dose 10 MG; Start 05/20/18 at 18:00 [facility]isc[facility] This patient borges... PRN PRN XX WOUND CARE; Start 05/21/18 at 04:00 Thiamine HCl (Vitamin B1) 100 mg DAILY PO Last administered on 05/24/18 10:18; Admin Dose 100 MG; Start 05/22/18 at 09:00 Lorazepam (Ativan) 1 mg Q3 PRN IV CONTROL WITHDRAWAL SYMPTOMS Last administered on 05/23/18at 22:56; Admin Dose 1 MG; Start 05/22/18 at 20:30 Lactulose (Enulose) 20 gm BID PO Last administered on 05/24/18at 10:17; Admin Dose 20 GM; Start 05/23/18 at 21:00 Spironolactone (Aldactone) 50 mg DAILY PO Last administered on 05/24/18 10:17; Admin Dose 50 MG; Start 05/24/18 at 09:00 Levetiracetam (Keppra) 1,000 mg BID PO ; Start 05/24/18 at 21:00 Furosemide (Lasix) 20 mg DAILY IV ; Start 05/25/18 at 09:00 CLARENCE OLIVAS May 24, 2018 15:21
[2018-05-24 20:00] VITALS: BP 131/67; PULSE 66; RESP 19
[2018-05-24] MEDS: LEVETIRACETAM 500 MG TAB PO SCH (20:20)
[2018-05-25] VITALS (7 sets, daily range): BP systolic 110–127; BP diastolic 57–68; PULSE 86–97; RESP 16–20
[2018-05-25] MEDS: ALBUTEROL/IPRATROPIUM (NEB) 3 ML AMP HHN SCH ×6 (00:31→20:08)
[2018-05-25] MEDS: METOCLOPRAMIDE 10 MG INJ IV SCH ×4 (05:40→18:40)
[2018-05-25] MEDS: SPIRONOLACTONE 50 MG TAB PO SCH (09:43)
[2018-05-25] MEDS: HYDROCODONE/APAP (5/325) TAB PO PRN ×2 (09:43→15:30)
[2018-05-25] MEDS: LEVETIRACETAM 500 MG TAB PO SCH ×2 (09:43→21:17)
[2018-05-25] MEDS: LACTULOSE 30ML CUP PO SCH ×2 (09:43→21:17)
[2018-05-25] MEDS: THIAMINE 100 MG TAB PO SCH (09:43)
[2018-05-25] MEDS: GABAPENTIN 300 MG CAP PO SCH ×2 (09:43→21:17)
[2018-05-25] MEDS: FUROSEMIDE 20 MG INJ IV SCH (09:44)
[2018-05-25] MEDS: LORAZEPAM 2 MG INJ IV PRN (09:59)
--- NOTE | 2018-05-25 14:44 | PN ---
Date/Time of Note Date/Time of Note DATE: 05/25/18 TIME: 14:43 Assessment/Plan VTE Prophylaxis Risk score (from Ns)>0 risk: 4 SCD applied (from Ns): Yes Pharmacological prophylaxis: other (scds) Lines/Catheters IV [facility]atheter Type (from [facility] Mid Line Urinary Cath still in place: No Assessment/Plan Hospital Course Assessment/Plan Assessment: Suspected liver cirrhosis -Untreated hepatitis C versus alcohol abuse- Currently RNA pending -Hepatitis B core AB- reactive (IgM non-reactive) -Hepatitis B AG negative Upper abdominal pain- improved Common bile duct dilation on imaging Status post ERCP 05/20/18 -Significant dilatation of the biliary tree with poor emptying consistent with papillary stenosis -Post sphincterotomy and balloon sweeping of the biliary tree Normocytic Anemia Thrombocytopenia- resolved Encephalopathy, toxic- improving UTI Wound to left lower extremity Scrotal edema- on diuretics- improving Hx of IV drug abuse Elevated Lfts - Increase alk phos and AST Plan: 2gm Na diet Continue lactulose 20 mg po BID, Lasix and Aldactone - monitor labs Continue current regimen D/c planning per hospitalist- pt very weak will likely require placement Pt with lower abd pain - paracentesis has been ordered- will continue to monitor After discharge pt will need to followed by GI Discussed with Dr. Ness/Hari Subjective: Patient c/o some lower abd pain, paracentesis pending, pt states swelling to scrotum has improved will continue currently regimen. PHYSICAL EXAMINATION: GENERAL: Oriented to name and place SKIN: multiple scars, wound to LLE dressing in place. EYES: Pupils equal reactive to light, no discharge. EARS/NOSE AND THROAT: Ears normal, nose normal. NECK: Supple, no masses. CHEST: Inspection within normal limits. CARDIOVASCULAR: Heart: Regular rate and rhythm RESPIRATORY: Lungs clear to auscultation GASTROINTESTINAL AND LIVER: Abdomen: Soft, moderately distended, tender in right upper quadrant, +ascites, no hernias, no masses, no organomegaly, no guarding, no rebound tenderness, normoactive bowel sounds. Rectal: Deferred. GENITOURINARY: scrotal edema EXTREMITIES: No cyanosis, clubbing or edema. Result Diagram: 05/24/18 0503 05/24/18 0503 Exam/Review of Systems Exam Vitals Vital Signs Date Temp Pulse Resp B/P (MAP) Pulse Ox O2 O2 Flow FiO2 Time Delivery Rate 05/25/18 98.6 86 18 127/63 92 14:32 (84) 05/25/18 4.0 08:52 05/25/18 Nasal 21 08:51 Cannula Intake and Output 05/24/18 05/24/18 05/25/18 1515:00 23:00 07:00 IntakeIntake Total 580 ml 100 ml 200 ml OutputOutput Total 750 ml 600 ml 800 ml BalanceBalance -170 ml -500 ml -600 ml Medications Medication Current Medications IV Flush (NS 3 ml) 3 ml PER PROTOCOL IV ; Start 05/14/18 at 00:00 Ondansetron HCl (Zofran Inj) 4 mg Q6H PRN IV NAUSEA/VOMITING; Start 05/14/18 at 00:00 Albuterol/ Ipratropium (Duoneb) 3 ml Q2H RESP THERAPY PRN HHN SHORTNESS OF BREATH Last administered on 05/23/18 03:27; Admin Dose 3 ML; Start 05/14/18 at 00:00 Gabapentin (Neurontin) 300 mg BID PO Last administered on 05/25/18 09:43; Admin Dose 300 MG; Start 05/14/18 at 10:00 Acetaminophen/ Hydrocodone Bitart ([place] (5/325)) 1 tab Q4H PRN PO MODERATE PAIN LEVEL 4-6 Last administered on 05/25/18 09:43; Admin Dose 1 TAB; Start 05/16/18 at 17:00 Albuterol/ Ipratropium (Duoneb) 3 ml Q4H RESP THERAPY HHN Last administered on 05/25/18 08:50; Admin Dose 3 ML; Start 05/19/18 at 01:00 Metoclopramide HCl (Reglan) 10 mg Q6 IV Last administered on 05/25/18 12:01; Admin Dose 10 MG; Start 05/20/18 at 18:00 [facility] This patient borges... PRN PRN XX WOUND CARE; Start 05/21/18 at 04:00 Thiamine HCl (Vitamin B1) 100 mg DAILY PO Last administered on 05/25/18 09:43; Admin Dose 100 MG; Start 05/22/18 at 09:00 Lorazepam (Ativan) 1 mg Q3 PRN IV CONTROL WITHDRAWAL SYMPTOMS Last administered on 05/25/18 09:59; Admin Dose 1 MG; Start 05/22/18 at 20:30 Lactulose (Enulose) 20 gm BID PO Last administered on 05/25/18 09:43; Admin Dose 20 GM; Start 05/23/18 at 21:00 Spironolactone (Aldactone) 50 mg DAILY PO Last administered on 05/25/18 09:43; Admin Dose 50 MG; Start 05/24/18 at 09:00 Levetiracetam (Keppra) 1,000 mg BID PO Last administered on 05/25/18 09:43; Admin Dose 1,000 MG; Start 05/24/18 at 21:00 Furosemide (Lasix) 20 mg DAILY IV Last administered on 05/25/18 09:44; Admin Dose 20 MG; Start 05/25/18 at 09:00 CLARENCE OLIVAS May 25, 2018 14:43
--- NOTE | 2018-05-25 15:35 | PN ---
Date/Time of Note Date/Time of Note DATE: 05/25/18 TIME OF EVALUATION: 12:13 Assessment/Plan VTE Prophylaxis Risk score (from Nsg)>0 risk: 4 SCD applied (from Nsg): Yes Pharmacological prophylaxis: heparin Lines/Catheters IV Catheter Type (from Nrsg): Mid Line Urinary Cath still in place: No Assessment/Plan Hospital Course S: Looking fairly comfortable today, sitting up in bed. I discussed discharge planning with him, he said he will go to his parents in [place] at discharge. I notified case management. He gave me a phone number for his mother, [phone]. Still requiring oxygen at 4 L a minute however OBJECTIVE : Constitutional: alert, oriented, unkempt, no current distress, able to make jokes Head: atraumatic, normocephalic Neck: non-tender, supple Respiratory: still quite diminished, ?crackles Cardiovascular: tachy, systolic M Gastrointestinal: S/ NT / ND / +BS / scrotal edema ++ Extremities: tamir Trace edema, good radial pulses assessment and plan: 62 yo man with cirrhosis admitted with AMS and RLE wound. He had developed encep halopathy which seems to have resolved, but he remains quite debilitated. record tabulating clerk are working on placement as he had told us he was homeless in the past, but with new information, we will see if we can contact his family. He is currently managed as follows : Acute respiratory failure : -patient has improved, but still on 4L via NC -CT reviewed and showed moderate bilateral pleural effusions, -will attempt thoracentesis, this will likely improve resp status -continue daily lasix / aldactone combo -BNP wasn't impressive for CHF, f/u echo Acalculous Cholecystitis -+HIDA -s/p ERCP on 05/20 with no stones or sludge; papillary stenosis -Currently patient has no RUQ pain, tolerating diet -continue abx -Spoke with Dr Gastelum, he states patient is poor surgical candidate with ascites and chronic liver disease and high risk for post op complications, hence since symptoms have resolved and patient is tolerating a diet, no further surgical input at this time. Toxic/alcoholic encephalopathy: now improving - Likely related to alcohol intoxication especially when combined with his home medications, one of them Vicodin. He also takes Neurontin. - Patient seems to have an element of confabulation. May be Wernicke's encephalopathy. Started low dose oral thiamine. -symptoms improved, patient fairly appropriate at this time - Blood alcohol level very elevated on admission - s/p Librium taper. Not requiring Ativan. s/p banana bag. Biliary tree dilation with papillary stenosis seen on ERCP -f/u biopsies ? -s/p sphincterotomy and ballon sweeping -no hyperbilirubinemia -GI following, f/u recs Liver cirrhosis (alcoholic / Hep C / Hep B) -mild transaminitis to ast >>alt and + alk phos -indices are stable, hence likely chronic -continue monitoring Hep C: -f/u RNA -not a good candidate for treatment based on social issues, defer to GI +Hep B core ab -chronic infection? Scrotal edema - Likely from anasarca. CT negative for subQ gas. keep elevated Chronic Sz d/o -maintained on home Keppra Hx of IVDA Chronic alcoholism -s/p cessation counselling, resources provided by Dispo: -Need to optimize resp status, eval for thoracentesis -Case mgt working on placement, also we will try the phone number he has provided to see if family can take him home Result Diagram: 05/24/18 0503 05/24/18 0503 Exam/Review of Systems Exam Vitals Vital Signs Date Temp Pulse Resp B/P (MAP) Pulse Ox O2 O2 Flow FiO2 Time Delivery Rate 05/25/18 85 15 97 Nasal 14:44 Cannula 05/25/18 98.6 127/63 14:32 (84) 05/25/18 4.0 08:52 05/25/18 21 08:51 Intake and Output 05/24/18 05/24/18 05/25/18 1515:00 23:00 07:00 IntakeIntake Total 580 ml 100 ml 200 ml OutputOutput Total 750 ml 600 ml 800 ml BalanceBalance -170 ml -500 ml -600 ml Medications Medication Current Medications IV Flush (NS 3 ml) 3 ml PER PROTOCOL IV ; Start 05/14/18 at 00:00 Ondansetron HCl (Zofran Inj) 4 mg Q6H PRN IV NAUSEA/VOMITING; Start 05/14/18 at 00:00 Albuterol/ Ipratropium (Duoneb) 3 ml Q2H RESP THERAPY PRN HHN SHORTNESS OF BREATH Last administered on 05/23/18 03:27; Admin Dose 3 ML; Start 05/14/18 at 00:00 Gabapentin (Neurontin) 300 mg BID PO Last administered on 05/25/18 09:43; Admin Dose 300 MG; Start 05/14/18 at 10:00 Acetaminophen/ Hydrocodone Bitart ([place] (5/325)) 1 tab Q4H PRN PO MODERATE PAIN LEVEL 4-6 Last administered on 05/25/18 09:43; Admin Dose 1 TAB; Start 05/16/18 at 17:00 Albuterol/ Ipratropium (Duoneb) 3 ml Q4H RESP THERAPY HHN Last administered on 05/25/18 14:42; Admin Dose 3 ML; Start 05/19/18 at 01:00 Metoclopramide HCl (Reglan) 10 mg Q6 IV Last administered on 05/25/18 12:01; Admin Dose 10 MG; Start 05/20/18 at 18:00 Miscellaneous Information (Pending [facility] Order For Wound Care) This patient borges... PRN PRN XX WOUND CARE; Start 05/21/18 at 04:00 Thiamine HCl (Vitamin B1) 100 mg DAILY PO Last administered on 05/25/18 09:43; Admin Dose 100 MG; Start 05/22/18 at 09:00 Lorazepam (Ativan) 1 mg Q3 PRN IV CONTROL WITHDRAWAL SYMPTOMS Last administered on 05/25/18 09:59; Admin Dose 1 MG; Start 05/22/18 at 20:30 Lactulose (Enulose) 20 gm BID PO Last administered on 05/25/18 09:43; Admin Dose 20 GM; Start 05/23/18 at 21:00 Spironolactone (Aldactone) 50 mg DAILY PO Last administered on 05/25/18 09:43; Admin Dose 50 MG; Start 05/24/18 at 09:00 Levetiracetam (Keppra) 1,000 mg BID PO Last administered on 05/25/18 09:43; Admin Dose 1,000 MG; Start 05/24/18 at 21:00 Furosemide (Lasix) 20 mg DAILY IV Last administered on 05/25/18 09:44; Admin Dose 20 MG; Start 05/25/18 at 09:00 GENNARO STACK 13, 2019 15:34
[2018-05-25] MEDS ORDERED: LIDOCAINE 1% (MPF) 5 ML VIAL ONE (16:56)
[2018-05-25] MEDS ORDERED: BARIUM SULF 2% 450 ML BTL (BERRY SMOOTHIE) PO ONE (17:00)
[2018-05-25] MEDS: HEPARIN 5,000 UNIT/1 ML VIAL SC SCH (21:19)
[2018-05-26] MEDS: ALBUTEROL/IPRATROPIUM (NEB) 3 ML AMP HHN SCH ×6 (00:49→20:56)
[2018-05-26 02:11] VITALS: BP 120/65; PULSE 91; RESP 18
[2018-05-26] MEDS: LACTULOSE 30ML CUP PO SCH ×3 (05:19→22:00)
[2018-05-26] MEDS: METOCLOPRAMIDE 10 MG INJ IV SCH ×4 (05:19→18:33)
[2018-05-26 08:22] VITALS: BP 119/58; PULSE 79; RESP 20
[2018-05-26] MEDS: THIAMINE 100 MG TAB PO SCH (09:09)
[2018-05-26] MEDS: GABAPENTIN 300 MG CAP PO SCH ×2 (09:09→22:00)
[2018-05-26] MEDS: LEVETIRACETAM 500 MG TAB PO SCH ×2 (09:09→22:00)
[2018-05-26] MEDS: FUROSEMIDE 20 MG INJ IV SCH ×2 (09:09→22:01)
[2018-05-26] MEDS: SPIRONOLACTONE 50 MG TAB PO SCH (09:09)
[2018-05-26] MEDS: HEPARIN 5,000 UNIT/1 ML VIAL SC SCH ×2 (09:12→22:03)
--- NOTE | 2018-05-26 10:18 | RADRPT ---
Echocardiogram Report Patient Name: NORMA MARXPatient ID: [id number] : 1955 (62y 11m)Study Date: 05/25/2018 9:12:06 AM Gender: Ginacession #: [id number] Tech: [place] Location: Ref.Physician: GENNARO STACK Height(Cm): BSA: Weight(Kg): Quality: AdequateAccount #: Procedures: Echocardiographic Report: Transthoracic echocardiogram with complete 2D, M-Mode, and doppler examination. Indications: Congestive Heart Failure. Measurements: 2D/M Mode Doppler Measurement Value Normal Range Measurement Value Normal Range LVIDd 2D 4.7 [ 4.2 - 5.8 ] cm AV Peak Chuy 1.7 [ 100.0 - 170.0 ] cm/sec LVIDs 2D 2.8 [ 2.5 - 4.0 ] cm AV Peak PG 12.0 [ 2.0 - 9.0 ] mmHg LVPWd 2D 1.1 [ 0.6 - 1.0 ] cm LVOT Peak Chuy 1.3 [ 70.0 - 110.0 ] cm/sec IVSd 2D 1.1 [ 0.6 - 1.0 ] cm LVOT Peak PG 7.0 [ 2.0 - 6.0 ] mmHg IVS/LVPW 2D 1.0 ratio MV E Peak Chuy 0.8 [ 60.0 - 130.0 ] cm/sec AoR Diam 2D 2.8 [ 2.6 - 3.4 ] cm MV A Peak Chuy 1.0 [ 100.0 - 120.0 ] cm/sec LA/Ao 2D 1 ratio MV E/A 0.8 [ 0.8 - 1.5 ] ratio LA Dimen 2D 4.0 [ 3.0 - 4.0 ] cm MV Decel Time 113 [ 104 - 258 ] msec Lat E` Chuy 0.1 [ 10.0 - 15.0 ] cm/sec MV E/A 0.8 [ 0.8 - 1.5 ] ratio TR Peak Chuy 3.5 [ 100.0 - 280.0 ] cm/sec TR Peak PG 50.0 mmHg RVSP 53.0 [ 10.0 - 36.0 ] mmHg RA Pressure 3.0 mmHg Findings: Left Ventricle: Normal left ventricular systolic function. Normal left ventricular cavity size. Left ventricular wall thickness upper limits of normal. Ejection fraction is visually estimated at 65 %. Tissue Doppler/Mitral Doppler indices are consistent with impaired relaxation (Stage I diastolic dysfunction). Right Ventricle: Normal right ventricular size. Normal right ventricular systolic function. Left Atrium: The left atrium is normal in size. Right Atrium: The right atrium is normal in size. Mitral Valve: Normal appearance of the mitral valve. Mild mitral annular calcification. Trace mitral regurgitation. Aortic Valve: No significant aortic stenosis or insufficiency. Aortic cusps appear moderately calcified. Tricuspid Valve: Normal appearance of the tricuspid valve. Estimated peak PA systolic pressure 53 mmHg. There is trace tricuspid regurgitation. Pulmonic Valve: Normal pulmonic valve appearance. Pericardium: Normal pericardium with no significant pericardial effusion. Aorta: Normal aortic root. IVC: Normal size and normal respiratory collapse consistent with normal right atrial pressure. Conclusions: Normal left ventricular systolic function. Normal left ventricular cavity size. Left ventricular wall thickness upper limits of normal. Ejection fraction is visually estimated at 65 %. Tissue Doppler/Mitral Doppler indices are consistent with impaired relaxation (Stage I diastolic dysfunction). Normal appearance of the tricuspid valve. Estimated peak PA systolic pressure 53 mmHg. There is trace tricuspid regurgitation. Electronically Signed By: Geovanni Deng 2018-05-26 10:17:30 PDT
[2018-05-26 14:05] VITALS: BP 111/59; PULSE 94; RESP 18
[2018-05-26] MEDS: HYDROCODONE/APAP (5/325) TAB PO PRN (14:31)
--- NOTE | 2018-05-26 14:33 | PN ---
Date/Time of Note Date/Time of Note DATE: 05/26/18 TIME: 14:27 Assessment/Plan VTE Prophylaxis Risk score (from Ns)>0 risk: 4 SCD applied (from Ns): Yes Pharmacological prophylaxis: other (scds) Lines/Catheters [facility] Mid Line Urinary Cath still in place: No Assessment/Plan Hospital Course Assessment/Plan Assessment: Suspected liver cirrhosis -Untreated hepatitis C versus alcohol abuse- Currently RNA pending -Hepatitis B core AB- reactive (IgM non-reactive) -Hepatitis B AG negative Upper abdominal pain- improved Common bile duct dilation on imaging Status post ERCP 05/20/18 -Significant dilatation of the biliary tree with poor emptying consistent with papillary stenosis -Post sphincterotomy and balloon sweeping of the biliary tree Normocytic Anemia Thrombocytopenia- resolved Encephalopathy, toxic- improving UTI Wound to left lower extremity Scrotal edema- on diuretics- improving Hx of IV drug abuse Elevated Lfts - Increase alk phos and AST Plan: 2gm Na diet Continue lactulose (titrate to 3-4 BMs per day), Lasix and Aldactone - monitor labs Continue current regimen D/c planning per hospitalist- pt very weak will likely require placement After discharge pt will need to followed by GI No new GI recommendations Discussed with Dr. Ness/Hari Subjective: S/p fall yesterday, pt states he feels well today. He had a paracentesis and Ct abd/pelvis last night with removal 3.[address] abd/pelvis- with multiple findings including distended gallbladder with multiple gallstones and gallbladder wall thickening. Rule out calculus cholecystitis. Moderate intra and extra panic biliary ductal dilation without obstructing lesion. WBC are WNL, LFTs trending down. Patient was evaluated by surgery previously - refer to their notes. Currently he states he is feeling much better, he states each day he feels better. More alert roday, no c/o nausea or vomiting, abd pain has improved today. PHYSICAL EXAMINATION: GENERAL: Oriented to name and place SKIN: multiple scars, wound to LLE dressing in place. EYES: Pupils equal reactive to light, no discharge. EARS/NOSE AND THROAT: Ears normal, nose normal. NECK: Supple, no masses. CHEST: Inspection within normal limits. CARDIOVASCULAR: Heart: Regular rate and rhythm RESPIRATORY: Lungs clear to auscultation GASTROINTESTINAL AND LIVER: Abdomen: Soft, moderately distended- improved post paracentesis, tender in right upper quadrant- improved , +ascites, no hernias, no masses, no organomegaly, no guarding, no rebound tenderness, normoactive bowel sounds. Rectal: Deferred. GENITOURINARY: scrotal edema EXTREMITIES: No cyanosis, clubbing or edema. Result Diagram: 05/26/18 0632 05/26/18 0632 Results 24hrs Laboratory Tests Test 05/25/18 15:39 05/25/18 16:25 05/26/18 06:32 Prothrombin Time 15.0 H Prothrombin Time Ratio 1.2 INR International Normalized Ratio 1.17 Activated Partial Thromboplast Time 32.5 Body Fluid Type ASCITES Body Fluid Volume Body Fluid Color OTHER Body Fluid Appearance HAZY Body Fluid WBC 105 Body Fluid RBC (Auto) 0 Body Fluid Polynuclear WBCs (%) 24.8 Body Fluid Mononuclear Cells % Auto 75.2 White Blood Count 5.6 # Red Blood Count 3.59 L Hemoglobin 11.4 L Hematocrit 34.8 L Mean Corpuscular Volume 96.9 Mean Corpuscular Hemoglobin 31.8 Mean Corpuscular Hemoglobin Concent 32.8 Red Cell Distribution Width 16.6 H Platelet Count 177 Mean Platelet Volume 9.3 Immature Granulocytes % 0.500 H Neutrophils % 64.2 Lymphocytes % 16.3 Monocytes % 12.4 H Eosinophils % 5.9 Basophils % 0.7 Nucleated Red Blood Cells % 0.0 Immature Granulocytes # 0.030 Neutrophils # 3.6 Lymphocytes # 0.9 Monocytes # 0.7 Eosinophils # 0.3 Basophils # 0.0 Nucleated Red Blood Cells # 0.0 Sodium Level 139 Potassium Level 4.3 Chloride Level 103 Carbon Dioxide Level 34 H Anion Gap 2 L Blood Urea Nitrogen 16 Creatinine 0.63 Est Glomerular Filtrat Rate mL/min > 60 Glucose Level 102 Calcium Level 8.6 Phosphorus Level 3.6 Magnesium Level 1.8 Total Bilirubin 1.0 Direct Bilirubin 0.00 Indirect Bilirubin 1.0 Aspartate Amino Transf (AST/SGOT) 73 H Alanine Aminotransferase (ALT/SGPT) 38 Alkaline Phosphatase 131 H Total Protein 6.5 Albumin 2.5 L Globulin 4.00 H Albumin/Globulin Ratio 0.62 Exam/Review of Systems Exam Vitals Vital Signs Date Temp Pulse Resp B/P (MAP) Pulse Ox O2 O2 Flow FiO2 Time Delivery Rate 05/26/18 98.8 94 18 111/59 92 Nasal 4.0 14:05 (76) Cannula 05/25/18 21 08:51 Intake and Output 05/25/18 05/25/18 05/26/18 1515:00 23:00 07:00 IntakeIntake Total 800 ml OutputOutput Total 300 ml 4100 ml 600 ml BalanceBalance -300 ml -3300 ml -600 ml Results Results 24hrs Laboratory Tests Test 05/25/18 15:39 05/25/18 16:25 05/26/18 06:32 Prothrombin Time 15.0 H Prothrombin Time Ratio 1.2 INR International Normalized Ratio 1.17 Activated Partial Thromboplast Time 32.5 Body Fluid Type ASCITES Body Fluid Volume Body Fluid Color OTHER Body Fluid Appearance HAZY Body Fluid WBC 105 Body Fluid RBC (Auto) 0 Body Fluid Polynuclear WBCs (%) 24.8 Body Fluid Mononuclear Cells % Auto 75.2 White Blood Count 5.6 # Red Blood Count 3.59 L Hemoglobin 11.4 L Hematocrit 34.8 L Mean Corpuscular Volume 96.9 Mean Corpuscular Hemoglobin 31.8 Mean Corpuscular Hemoglobin Concent 32.8 Red Cell Distribution Width 16.6 H Platelet Count 177 Mean Platelet Volume 9.3 Immature Granulocytes % 0.500 H Neutrophils % 64.2 Lymphocytes % 16.3 Monocytes % 12.4 H Eosinophils % 5.9 Basophils % 0.7 Nucleated Red Blood Cells % 0.0 Immature Granulocytes # 0.030 Neutrophils # 3.6 Lymphocytes # 0.9 Monocytes # 0.7 Eosinophils # 0.3 Basophils # 0.0 Nucleated Red Blood Cells # 0.0 Sodium Level 139 Potassium Level 4.3 Chloride Level 103 Carbon Dioxide Level 34 H Anion Gap 2 L Blood Urea Nitrogen 16 Creatinine 0.63 Est Glomerular Filtrat Rate mL/min > 60 Glucose Level 102 Calcium Level 8.6 Phosphorus Level 3.6 Magnesium Level 1.8 Total Bilirubin 1.0 Direct Bilirubin 0.00 Indirect Bilirubin 1.0 Aspartate Amino Transf (AST/SGOT) 73 H Alanine Aminotransferase (ALT/SGPT) 38 Alkaline Phosphatase 131 H Total Protein 6.5 Albumin 2.5 L Globulin 4.00 H Albumin/Globulin Ratio 0.62 Medications Medication Current Medications IV Flush (NS 3 ml) 3 ml PER PROTOCOL IV ; Start 05/14/18 at 00:00 Ondansetron HCl (Zofran Inj) 4 mg Q6H PRN IV NAUSEA/VOMITING; Start 05/14/18 at 00:00 Albuterol/ Ipratropium (Duoneb) 3 ml Q2H RESP THERAPY PRN HHN SHORTNESS OF BREATH Last administered on 05/23/18 03:27; Admin Dose 3 ML; Start 05/14/18 at 00:00 Gabapentin (Neurontin) 300 mg BID PO Last administered on 05/26/18 09:09; Admin Dose 300 MG; Start 05/14/18 at 10:00 Acetaminophen/ Hydrocodone Bitart ([place] (5/325)) 1 tab Q4H PRN PO MODERATE PAIN LEVEL 4-6 Last administered on 05/25/18 15:30; Admin Dose 1 TAB; Start 05/16/18 at 17:00 Albuterol/ Ipratropium (Duoneb) 3 ml Q4H RESP THERAPY HHN Last administered on 05/26/18 12:37; Admin Dose 3 ML; Start 05/19/18 at 01:00 Metoclopramide HCl (Reglan) 10 mg Q6 IV Last administered on 05/26/18 13:13; Admin Dose 10 MG; Start 05/20/18 at 18:00 Miscellaneous Information (Pending [facility] Order For Wound Care) This patient borges... PRN PRN XX WOUND CARE; Start 05/21/18 at 04:00 Thiamine HCl (Vitamin B1) 100 mg DAILY PO Last administered on 05/26/18 09:09; Admin Dose 100 MG; Start 05/22/18 at 09:00 Lorazepam (Ativan) 1 mg Q3 PRN IV CONTROL WITHDRAWAL SYMPTOMS Last administered on 05/25/18 09:59; Admin Dose 1 MG; Start 05/22/18 at 20:30 Spironolactone (Aldactone) 50 mg DAILY PO Last administered on 05/26/18 09:09; Admin Dose 50 MG; Start 05/24/18 at 09:00 Levetiracetam (Keppra) 1,000 mg BID PO Last administered on 05/26/18 09:09; Admin Dose 1,000 MG; Start 05/24/18 at 21:00 Furosemide (Lasix) 20 mg DAILY IV Last administered on 05/26/18 09:09; Admin Dose 20 MG; Start 05/25/18 at 09:00 Heparin Sodium (Porcine) (Heparin (5000 Units/1ml)) 5,000 unit BID SC Last administered on 05/26/18at 09:12; Admin Dose 5,000 UNIT; Start 05/25/18 at 21:00 Lactulose (Enulose) 20 gm Q8H PO Last administered on 05/26/18at 05:19; Admin Dose 20 GM; Start 05/25/18 at 21:00 CLARENCE OLIVAS May 26, 2018 14:33
--- NOTE | 2018-05-26 19:12 | PN ---
Date/Time of Note Date/Time of Note DATE: 05/26/18 TIME: 18:49 Assessment/Plan VTE Prophylaxis Risk score (from Nsg)>0 risk: 4 SCD applied (from Nsg): Yes Pharmacological prophylaxis: heparin Lines/Catheters IV Catheter Type (from Nrsg): Mid Line Urinary Cath still in place: No Assessment/Plan Hospital Course S: remains comfortable, was sleeping in no distress, found on the floor yes terday, but no injuries, CT was repeat d/t c/o abd pain findings reviewed. Paracentesis to r/o sbp versus adjacent infection OBJECTIVE : Constitutional: sleeping comfortably, but arousable Head: atraumatic, normocephalic Neck: non-tender, supple Respiratory: still quite diminished, ?crackles Cardiovascular: murmur not as pronounced Gastrointestinal: S/ NT / ND / +BS / scrotal edema ++ Extremities: tamir Trace edema, good radial pulses assessment and plan: 62 yo man with cirrhosis admitted with AMS and RLE wound. He had developed encephalopathy which seems to have resolved, but he remains quite debilitated. academic advisor are working on placement as he had told us he was homeless in the past, but with new information, we will see if we can contact his family. He is currently managed as follows : Acute respiratory failure : -patient has improved, but still on 4L via NC -CT reviewed and showed moderate bilateral pleural effusions, however , no fluid on thoracentesis -continue daily lasix / aldactone combo -BNP wasn't impressive for CHF as was echo, but PUlm HTN noted Acalculous Cholecystitis -+HIDA -s/p ERCP on 05/20 with no stones or sludge; papillary stenosis -Currently patient has no RUQ pain, tolerating diet -continue abx -Spoke with Dr Gastelum, he states patient is poor surgical candidate with ascites and chronic liver disease and high risk for post op complications, hence since symptoms have resolved and patient is tolerating a diet, no further surgical input at this time. Toxic/alcoholic encephalopathy: now improving - Likely related to alcohol intoxication especially when combined with his home medications, one of them Vicodin. He also takes Neurontin. - Patient seems to have an element of confabulation. May be Wernicke's encephalopathy. Started low dose oral thiamine. -symptoms improved, patient fairly appropriate at this time - Blood alcohol level very elevated on admission - s/p Librium taper. Not requiring Ativan. s/p banana bag. Biliary tree dilation with papillary stenosis seen on ERCP -f/u biopsies ? -s/p sphincterotomy and ballon sweeping -no hyperbilirubinemia -GI following, f/u recs Liver cirrhosis (alcoholic / Hep C / Hep B) -mild transaminitis to ast >>alt and + alk phos -indices are stable, hence likely chronic -continue monitoring Hep C with cirrhosis, ascites, anasarca and portal HTN and varices: -f/u Hep c RNA -not a good candidate for treatment based on social issues, defer to GI -low dose propranolol? -s/p paracentesis 05/25/18, 3.6 L removed, no gross finding of SBP, f/u cultures +Hep B core ab -chronic infection? Scrotal edema - Likely from anasarca. CT negative for subQ gas. keep elevated Chronic Sz d/o -maintained on home Keppra Hx of IVDA Chronic alcoholism -s/p cessation counselling, resources provided by [facility] Possible COPD with Pulm HTN Dispo: -add albumin to help with diuresis and anasarca -patient is homeless and debilitated, pillowcase turner still working on placement -continue conservative treatment of cholecystitis Result Diagram: 05/26/18 0632 05/26/18 0632 Results 24hrs Laboratory Tests Test 05/26/18 06:32 White Blood Count 5.6 # Red Blood Count 3.59 L Hemoglobin 11.4 L Hematocrit 34.8 L Mean Corpuscular Volume 96.9 Mean Corpuscular Hemoglobin 31.8 Mean Corpuscular Hemoglobin Concent 32.8 Red Cell Distribution Width 16.6 H Platelet Count 177 Mean Platelet Volume 9.3 Immature Granulocytes % 0.500 H Neutrophils % 64.2 Lymphocytes % 16.3 Monocytes % 12.4 H Eosinophils % 5.9 Basophils % 0.7 Nucleated Red Blood Cells % 0.0 Immature Granulocytes # 0.030 Neutrophils # 3.6 Lymphocytes # 0.9 Monocytes # 0.7 Eosinophils # 0.3 Basophils # 0.0 Nucleated Red Blood Cells # 0.0 Sodium Level 139 Potassium Level 4.3 Chloride Level 103 Carbon Dioxide Level 34 H Anion Gap 2 L Blood Urea Nitrogen 16 Creatinine 0.63 Est Glomerular Filtrat Rate mL/min > 60 Glucose Level 102 Calcium Level 8.6 Phosphorus Level 3.6 Magnesium Level 1.8 Total Bilirubin 1.0 Direct Bilirubin 0.00 Indirect Bilirubin 1.0 Aspartate Amino Transf (AST/SGOT) 73 H Alanine Aminotransferase (ALT/SGPT) 38 Alkaline Phosphatase 131 H Total Protein 6.5 Albumin 2.5 L Globulin 4.00 H Albumin/Globulin Ratio 0.62 Exam/Review of Systems Exam Vitals Vital Signs Date Temp Pulse Resp B/P (MAP) Pulse Ox O2 O2 Flow FiO2 Time Delivery Rate 05/26/18 Nasal 4 16:32 Cannula 05/26/18 98.8 94 18 111/59 92 14:05 (76) 05/25/18 08:51 Intake and Output 05/25/18 05/25/18 05/26/18 1515:00 23:00 07:00 IntakeIntake Total 800 ml OutputOutput Total 300 ml 4100 ml 600 ml BalanceBalance -300 ml -3300 ml -600 ml Results Results 24hrs Laboratory Tests Test 05/26/18 06:32 White Blood Count 5.6 # Red Blood Count 3.59 L Hemoglobin 11.4 L Hematocrit 34.8 L Mean Corpuscular Volume 96.9 Mean Corpuscular Hemoglobin 31.8 Mean Corpuscular Hemoglobin Concent 32.8 Red Cell Distribution Width 16.6 H Platelet Count 177 Mean Platelet Volume 9.3 Immature Granulocytes % 0.500 H Neutrophils % 64.2 Lymphocytes % 16.3 Monocytes % 12.4 H Eosinophils % 5.9 Basophils % 0.7 Nucleated Red Blood Cells % 0.0 Immature Granulocytes # 0.030 Neutrophils # 3.6 Lymphocytes # 0.9 Monocytes # 0.7 Eosinophils # 0.3 Basophils # 0.0 Nucleated Red Blood Cells # 0.0 Sodium Level 139 Potassium Level 4.3 Chloride Level 103 Carbon Dioxide Level 34 H Anion Gap 2 L Blood Urea Nitrogen 16 Creatinine 0.63 Est Glomerular Filtrat Rate mL/min > 60 Glucose Level 102 Calcium Level 8.6 Phosphorus Level 3.6 Magnesium Level 1.8 Total Bilirubin 1.0 Direct Bilirubin 0.00 Indirect Bilirubin 1.0 Aspartate Amino Transf (AST/SGOT) 73 H Alanine Aminotransferase (ALT/SGPT) 38 Alkaline Phosphatase 131 H Total Protein 6.5 Albumin 2.5 L Globulin 4.00 H Albumin/Globulin Ratio 0.62 Medications Medication Current Medications IV Flush (NS 3 ml) 3 ml PER PROTOCOL IV ; Start 05/14/18 at 00:00 Ondansetron HCl (Zofran Inj) 4 mg Q6H PRN IV NAUSEA/VOMITING; Start 05/14/18 at 00:00 Albuterol/ Ipratropium (Duoneb) 3 ml Q2H RESP THERAPY PRN HHN SHORTNESS OF BREATH Last administered on 05/23/18 03:27; Admin Dose 3 ML; Start 05/14/18 at 00:00 Gabapentin (Neurontin) 300 mg BID PO Last administered on 05/26/18 09:09; Admin Dose 300 MG; Start 05/14/18 at 10:00 Acetaminophen/ Hydrocodone Bitart ([place] (5/325)) 1 tab Q4H PRN PO MODERATE PAIN LEVEL 4-6 Last administered on 05/26/18 14:31; Admin Dose 1 TAB; Start 05/16/18 at 17:00 Albuterol/ Ipratropium (Duoneb) 3 ml Q4H RESP THERAPY HHN Last administered on 05/26/18 12:37; Admin Dose 3 ML; Start 05/19/18 at 01:00 Metoclopramide HCl (Reglan) 10 mg Q6 IV Last administered on 05/26/18 18:33; Admin Dose 10 MG; Start 05/20/18 at 18:00 Miscellaneous Information (Pending [facility] Order For Wound Care) This patient borges... PRN PRN XX WOUND CARE; Start 05/21/18 at 04:00 Thiamine HCl (Vitamin B1) 100 mg DAILY PO Last administered on 05/26/18 09:09; Admin Dose 100 MG; Start 05/22/18 at 09:00 Lorazepam (Ativan) 1 mg Q3 PRN IV CONTROL WITHDRAWAL SYMPTOMS Last administered on 05/25/18 09:59; Admin Dose 1 MG; Start 05/22/18 at 20:30 Spironolactone (Aldactone) 50 mg DAILY PO Last administered on 05/26/18 09:09; Admin Dose 50 MG; Start 05/24/18 at 09:00 Levetiracetam (Keppra) 1,000 mg BID PO Last administered on 05/26/18 09:09; Admin Dose 1,000 MG; Start 05/24/18 at 21:00 Furosemide (Lasix) 20 mg DAILY IV Last administered on 05/26/18at 09:09; Admin Dose 20 MG; Start 05/25/18 at 09:00 Heparin Sodium (Porcine) (Heparin (5000 Units/1ml)) 5,000 unit BID SC Last administered on 05/26/18 09:12; Admin Dose 5,000 UNIT; Start 05/25/18 at 21:00 Lactulose (Enulose) 20 gm Q8H PO Last administered on 05/26/18at 05:19; Admin Dose 20 GM; Start 05/25/18 at 21:00 GENNARO STACK May 26, 2018 18:59
[2018-05-26 20:09] VITALS: BP 105/53; PULSE 85; RESP 18
[2018-05-26] MEDS: ALBUMIN HUMAN 25% 50 ML IV SCH (21:48)
[2018-05-27] MEDS: METOCLOPRAMIDE 10 MG INJ IV SCH ×4 (00:33→17:45)
[2018-05-27] MEDS: ALBUTEROL/IPRATROPIUM (NEB) 3 ML AMP HHN SCH ×6 (00:42→20:28)
[2018-05-27 02:00] VITALS: BP 110/52; PULSE 83; RESP 18
[2018-05-27] MEDS: ALBUMIN HUMAN 25% 50 ML IV SCH ×2 (03:47→12:10)
[2018-05-27] MEDS: FUROSEMIDE 20 MG INJ IV SCH (06:14)
[2018-05-27] MEDS: LACTULOSE 30ML CUP PO SCH (06:14)
--- NOTE | 2018-05-27 06:28 | PN ---
Date/Time of Note Date/Time of Note DATE: 05/27/18 TIME: 06:26 Assessment/Plan VTE Prophylaxis Risk score (from Nsg)>0 risk: 3 SCD applied (from Nsg): Yes Pharmacological prophylaxis: heparin Lines/Catheters IV Catheter Type (from Nrsg): Mid Line Urinary Cath still in place: No Assessment/Plan Hospital Course S: remains comfortable, was sleeping in no distress, found on the floor yes terday, but no injuries, CT was repeat d/t c/o abd pain findings reviewed. Paracentesis to r/o sbp versus adjacent infection OBJECTIVE : Constitutional: sleeping comfortably, but arousable Head: atraumatic, normocephalic Neck: non-tender, supple Respiratory: still quite diminished, ?crackles Cardiovascular: murmur not as pronounced Gastrointestinal: S/ NT / ND / +BS / scrotal edema ++ Extremities: tamir Trace edema, good radial pulses assessment and plan: 62 yo man with cirrhosis admitted with AMS and RLE wound. He had developed encephalopathy which seems to have resolved, but he remains quite debilitated. equipment technician are working on placement as he had told us he was homeless in the past, but with new information, we will see if we can contact his family. He is currently managed as follows : Acute respiratory failure : -patient has improved, but still on 4L via NC -CT reviewed and showed moderate bilateral pleural effusions, however , no fluid on thoracentesis -continue daily lasix / aldactone combo -BNP wasn't impressive for CHF as was echo, but PUlm HTN noted Acalculous Cholecystitis -+HIDA -s/p ERCP on 05/20 with no stones or sludge; papillary stenosis -Currently patient has no RUQ pain, tolerating diet -continue abx -Spoke with Dr Gastelum, he states patient is poor surgical candidate with ascites and chronic liver disease and high risk for post op complications, hence since symptoms have resolved and patient is tolerating a diet, no further surgical input at this time. Toxic/alcoholic encephalopathy: now improving - Likely related to alcohol intoxication especially when combined with his home medications, one of them Vicodin. He also takes Neurontin. - Patient seems to have an element of confabulation. May be Wernicke's encephalopathy. Started low dose oral thiamine. -symptoms improved, patient fairly appropriate at this time - Blood alcohol level very elevated on admission - s/p Librium taper. Not requiring Ativan. s/p banana bag. Biliary tree dilation with papillary stenosis seen on ERCP -f/u biopsies ? -s/p sphincterotomy and ballon sweeping -no hyperbilirubinemia -GI following, f/u recs Liver cirrhosis (alcoholic / Hep C / Hep B) -mild transaminitis to ast >>alt and + alk phos -indices are stable, hence likely chronic -continue monitoring Hep C with cirrhosis, ascites, anasarca and portal HTN and varices: -f/u Hep c RNA -not a good candidate for treatment based on social issues, defer to GI -low dose propranolol? -s/p paracentesis 05/25/18, 3.6 L removed, no gross finding of SBP, f/u cultures +Hep B core ab -chronic infection? Scrotal edema - Likely from anasarca. CT negative for subQ gas. keep elevated Chronic Sz d/o -maintained on home Keppra Hx of IVDA Chronic alcoholism -s/p cessation counselling, resources provided by [facility] Possible COPD with Pulm HTN Dispo: - continue gentle diuresis and O2 weaning -patient is homeless and debilitated, PT notes reviewed, still unsafe for self discharge also still needs O2, case liner still working on placement -continue conservative treatment of cholecystitis, 2nd surgical opinion? patient remains comfortable however Result Diagram: 05/26/18 0632 05/26/18 0632 Results 24hrs Laboratory Tests Test 05/26/18 06:32 White Blood Count 5.6 # Red Blood Count 3.59 L Hemoglobin 11.4 L Hematocrit 34.8 L Mean Corpuscular Volume 96.9 Mean Corpuscular Hemoglobin 31.8 Mean Corpuscular Hemoglobin Concent 32.8 Red Cell Distribution Width 16.6 H Platelet Count 177 Mean Platelet Volume 9.3 Immature Granulocytes % 0.500 H Neutrophils % 64.2 Lymphocytes % 16.3 Monocytes % 12.4 H Eosinophils % 5.9 Basophils % 0.7 Nucleated Red Blood Cells % 0.0 Immature Granulocytes # 0.030 Neutrophils # 3.6 Lymphocytes # 0.9 Monocytes # 0.7 Eosinophils # 0.3 Basophils # 0.0 Nucleated Red Blood Cells # 0.0 Sodium Level 139 Potassium Level 4.3 Chloride Level 103 Carbon Dioxide Level 34 H Anion Gap 2 L Blood Urea Nitrogen 16 Creatinine 0.63 Est Glomerular Filtrat Rate mL/min > 60 Glucose Level 102 Calcium Level 8.6 Phosphorus Level 3.6 Magnesium Level 1.8 Total Bilirubin 1.0 Direct Bilirubin 0.00 Indirect Bilirubin 1.0 Aspartate Amino Transf (AST/SGOT) 73 H Alanine Aminotransferase (ALT/SGPT) 38 Alkaline Phosphatase 131 H Total Protein 6.5 Albumin 2.5 L Globulin 4.00 H Albumin/Globulin Ratio 0.62 Exam/Review of Systems Exam Vitals Vital Signs Date Temp Pulse Resp B/P (MAP) Pulse Ox O2 O2 Flow FiO2 Time Delivery Rate 05/27/18 81 18 96 Nasal 3.0 04:13 Cannula 05/26/18 98.1 105/53 20:09 (70) 05/25/18 21 08:51 Intake and Output 05/26/18 05/26/18 05/27/18 1515:00 23:00 07:00 IntakeIntake Total 560 ml 250 ml 50 ml OutputOutput Total 1200 ml BalanceBalance -640 ml 250 ml 50 ml Results Results 24hrs Laboratory Tests Test 05/26/18 06:32 White Blood Count 5.6 # Red Blood Count 3.59 L Hemoglobin 11.4 L Hematocrit 34.8 L Mean Corpuscular Volume 96.9 Mean Corpuscular Hemoglobin 31.8 Mean Corpuscular Hemoglobin Concent 32.8 Red Cell Distribution Width 16.6 H Platelet Count 177 Mean Platelet Volume 9.3 Immature Granulocytes % 0.500 H Neutrophils % 64.2 Lymphocytes % 16.3 Monocytes % 12.4 H Eosinophils % 5.9 Basophils % 0.7 Nucleated Red Blood Cells % 0.0 Immature Granulocytes # 0.030 Neutrophils # 3.6 Lymphocytes # 0.9 Monocytes # 0.7 Eosinophils # 0.3 Basophils # 0.0 Nucleated Red Blood Cells # 0.0 Sodium Level 139 Potassium Level 4.3 Chloride Level 103 Carbon Dioxide Level 34 H Anion Gap 2 L Blood Urea Nitrogen 16 Creatinine 0.63 Est Glomerular Filtrat Rate mL/min > 60 Glucose Level 102 Calcium Level 8.6 Phosphorus Level 3.6 Magnesium Level 1.8 Total Bilirubin 1.0 Direct Bilirubin 0.00 Indirect Bilirubin 1.0 Aspartate Amino Transf (AST/SGOT) 73 H Alanine Aminotransferase (ALT/SGPT) 38 Alkaline Phosphatase 131 H Total Protein 6.5 Albumin 2.5 L Globulin 4.00 H Albumin/Globulin Ratio 0.62 Medications Medication Current Medications IV Flush (NS 3 ml) 3 ml PER PROTOCOL IV ; Start 05/14/18 at 00:00 Ondansetron HCl (Zofran Inj) 4 mg Q6H PRN IV NAUSEA/VOMITING; Start 05/14/18 at 00:00 Albuterol/ Ipratropium (Duoneb) 3 ml Q2H RESP THERAPY PRN HHN SHORTNESS OF BREATH Last administered on 05/23/18 03:27; Admin Dose 3 ML; Start 05/14/18 at 00:00 Gabapentin (Neurontin) 300 mg BID PO Last administered on 05/26/18 22:00; Admin Dose 300 MG; Start 05/14/18 at 10:00 Acetaminophen/ Hydrocodone Bitart ([place] (5/325)) 1 tab Q4H PRN PO MODERATE PAIN LEVEL 4-6 Last administered on 05/26/18 14:31; Admin Dose 1 TAB; Start 05/16/18 at 17:00 Albuterol/ Ipratropium (Duoneb) 3 ml Q4H RESP THERAPY HHN Last administered on 05/27/18 04:13; Admin Dose 3 ML; Start 05/19/18 at 01:00 Metoclopramide HCl (Reglan) 10 mg Q6 IV Last administered on 05/27/18 06:13; Admin Dose 10 MG; Start 05/20/18 at 18:00 Miscellaneous Information (Pending [facility] Order For Wound Care) This patient borges... PRN PRN XX WOUND CARE; Start 05/21/18 at 04:00 Thiamine HCl (Vitamin B1) 100 mg DAILY PO Last administered on 05/26/18 09:09; Admin Dose 100 MG; Start 05/22/18 at 09:00 Lorazepam (Ativan) 1 mg Q3 PRN IV CONTROL WITHDRAWAL SYMPTOMS Last administered on 05/25/18 09:59; Admin Dose 1 MG; Start 05/22/18 at 20:30 Spironolactone (Aldactone) 50 mg DAILY PO Last administered on 05/26/18 09:09; Admin Dose 50 MG; Start 05/24/18 at 09:00 Levetiracetam (Keppra) 1,000 mg BID PO Last administered on 05/26/18 22:00; Admin Dose 1,000 MG; Start 05/24/18 at 21:00 Heparin Sodium (Porcine) (Heparin (5000 Units/1ml)) 5,000 unit BID SC Last administered on 05/26/18at 22:03; Admin Dose 5,000 UNIT; Start 05/25/18 at 21:00 Lactulose (Enulose) 20 gm Q8H PO Last administered on 05/27/18at 06:14; Admin Dose 20 GM; Start 05/25/18 at 21:00 Albumin Human 50 ml @ 100 mls/hr Q8H IV Last administered on 05/27/18at 03:47; Admin Dose 100 MLS/HR; Start 05/26/18 at 19:30; Stop 05/27/18 at 11:59 Furosemide (Lasix) 20 mg BID DIURETICS IV Last administered on 05/27/18 06:14; Admin Dose 20 MG; Start 05/26/18 at 19:22 GENNARO STACK 15, 2019 06:28
[2018-05-27 07:55] VITALS: BP 103/59; PULSE 89; RESP 16
[2018-05-27] MEDS: THIAMINE 100 MG TAB PO SCH (08:47)
[2018-05-27] MEDS: LEVETIRACETAM 500 MG TAB PO SCH ×2 (08:47→21:53)
[2018-05-27] MEDS: GABAPENTIN 300 MG CAP PO SCH ×2 (08:47→21:53)
[2018-05-27] MEDS: SPIRONOLACTONE 50 MG TAB PO SCH ×2 (08:47→21:53)
[2018-05-27] MEDS: HEPARIN 5,000 UNIT/1 ML VIAL SC SCH ×2 (08:50→21:54)
[2018-05-27] MEDS ORDERED: DICYCLOMINE 20 MG INJ IM ONE (12:00)
[2018-05-27] MEDS: HYDROCODONE/APAP (5/325) TAB PO PRN (14:37)
[2018-05-27 14:56] VITALS: BP 128/51; PULSE 98; RESP 18
[2018-05-27] MEDS: LORAZEPAM 2 MG INJ IV PRN (15:45)
--- NOTE | 2018-05-27 17:52 | PN ---
Date/Time of Note Date/Time of Note DATE: 05/27/18 TIME: 17:38 Assessment/Plan VTE Prophylaxis Risk score (from Ns)>0 risk: 3 SCD applied (from Ns): Yes Pharmacological prophylaxis: NA/contraindicated Pharm contraindication: blood coag disorder Lines/Catheters IV [facility]from [facility] Mid Line Urinary Cath still in place: No Assessment/Plan Hospital Course Assessment: Liver cirrhosis -Untreated hepatitis C versus alcohol abuse- Currently RNA pending -Hepatitis B core AB- reactive (IgM non-reactive) -Hepatitis B AG negative Upper abdominal pain- improved Common bile duct dilation on imaging Status post ERCP 05/20/18 -Significant dilatation of the biliary tree with poor emptying consistent with papillary stenosis -Post sphincterotomy and balloon sweeping of the biliary tree Normocytic Anemia Thrombocytopenia- resolved Encephalopathy, toxic- improving UTI Wound to left lower extremity Scrotal edema- on diuretics- improving Hx of IV drug abuse Elevated Lfts - Increase alk phos and AST Plan: 2gm Na diet Continue lactulose (titrate to 3-4 BMs per day), Adjust Lasix and Aldactone - monitor labs Continue current regimen Result Diagram: 05/27/1851 05/27/18 0551 Results 24hrs Laboratory Tests Test 05/27/18 05:51 White Blood Count 6.5 Red Blood Count 3.49 L Hemoglobin 11.0 L Hematocrit 32.8 L Mean Corpuscular Volume 94.0 Mean Corpuscular Hemoglobin 31.5 Mean Corpuscular Hemoglobin Concent 33.5 Red Cell Distribution Width 16.5 H Platelet Count 178 Mean Platelet Volume 9.5 Immature Granulocytes % 0.500 H Neutrophils % 63.0 Lymphocytes % 16.7 Monocytes % 12.0 H Eosinophils % 6.9 Basophils % 0.9 Nucleated Red Blood Cells % 0.0 Immature Granulocytes # 0.030 Neutrophils # 4.1 Lymphocytes # 1.1 Monocytes # 0.8 Eosinophils # 0.5 Basophils # 0.1 Nucleated Red Blood Cells # 0.0 Sodium Level 135 Potassium Level 4.0 Chloride Level 102 Carbon Dioxide Level 29 Anion Gap 4 L Blood Urea Nitrogen 17 Creatinine 0.59 L Est Glomerular Filtrat Rate mL/min > 60 Glucose Level 135 Calcium Level 8.4 Total Bilirubin 0.8 Direct Bilirubin 0.00 Indirect Bilirubin 0.8 Aspartate Amino Transf (AST/SGOT) 64 H Alanine Aminotransferase (ALT/SGPT) 34 Alkaline Phosphatase 141 H Total Protein 6.6 Albumin 2.6 L Globulin 4.00 H Albumin/Globulin Ratio 0.65 Exam/Review of Systems Exam Vitals Vital Signs Date Temp Pulse Resp B/P (MAP) Pulse Ox O2 O2 Flow FiO2 Time Delivery Rate 05/27/18 Nasal 4.0 16:47 Cannula 05/27/18 92 18 97 16:45 05/27/18 98.2 128/51 14:56 (76) 05/25/18 21 08:51 Intake and Output 05/26/18 05/26/18 05/27/18 1515:00 23:00 07:00 IntakeIntake Total 560 ml 250 ml 50 ml OutputOutput Total 1200 ml BalanceBalance -640 ml 250 ml 50 ml Exam GENERAL: Oriented to name and place SKIN: multiple scars, wound to LLE dressing in place. EYES: Pupils equal reactive to light, no discharge. EARS/NOSE AND THROAT: Ears normal, nose normal. NECK: Supple, no masses. CHEST: Inspection within normal limits. CARDIOVASCULAR: Heart: Regular rate and rhythm RESPIRATORY: Lungs clear to auscultation GASTROINTESTINAL AND LIVER: Abdomen: Soft, moderately distended- improved post paracentesis, tender in right upper quadrant- improved , +ascites, no hernias, no masses, no organomegaly, no guarding, no rebound tenderness, normoactive bowel sounds. Rectal: Deferred. GENITOURINARY: scrotal edema EXTREMITIES: No cyanosis, clubbing or edema. Results Results 24hrs Laboratory Tests Test 05/27/18 05:51 White Blood Count 6.5 Red Blood Count 3.49 L Hemoglobin 11.0 L Hematocrit 32.8 L Mean Corpuscular Volume 94.0 Mean Corpuscular Hemoglobin 31.5 Mean Corpuscular Hemoglobin Concent 33.5 Red Cell Distribution Width 16.5 H Platelet Count 178 Mean Platelet Volume 9.5 Immature Granulocytes % 0.500 H Neutrophils % 63.0 Lymphocytes % 16.7 Monocytes % 12.0 H Eosinophils % 6.9 Basophils % 0.9 Nucleated Red Blood Cells % 0.0 Immature Granulocytes # 0.030 Neutrophils # 4.1 Lymphocytes # 1.1 Monocytes # 0.8 Eosinophils # 0.5 Basophils # 0.1 Nucleated Red Blood Cells # 0.0 Sodium Level 135 Potassium Level 4.0 Chloride Level 102 Carbon Dioxide Level 29 Anion Gap 4 L Blood Urea Nitrogen 17 Creatinine 0.59 L Est Glomerular Filtrat Rate mL/min > 60 Glucose Level 135 Calcium Level 8.4 Total Bilirubin 0.8 Direct Bilirubin 0.00 Indirect Bilirubin 0.8 Aspartate Amino Transf (AST/SGOT) 64 H Alanine Aminotransferase (ALT/SGPT) 34 Alkaline Phosphatase 141 H Total Protein 6.6 Albumin 2.6 L Globulin 4.00 H Albumin/Globulin Ratio 0.65 Medications Medication Current Medications IV Flush (NS 3 ml) 3 ml PER PROTOCOL IV ; Start 05/14/18 at 00:00 Ondansetron HCl (Zofran Inj) 4 mg Q6H PRN IV NAUSEA/VOMITING; Start 05/14/18 at 00:00 Albuterol/ Ipratropium (Duoneb) 3 ml Q2H RESP THERAPY PRN HHN SHORTNESS OF BREATH Last administered on 05/23/18at 03:27; Admin Dose 3 ML; Start 05/14/18 at 00:00 Gabapentin (Neurontin) 300 mg BID PO Last administered on 05/27/18 08:47; Ad min Dose 300 MG; Start 05/14/18 at 10:00 Acetaminophen/ Hydrocodone Bitart ([place] (5/325)) 1 tab Q4H PRN PO MODERATE PAIN LEVEL 4-6 Last administered on 05/27/18 14:37; Admin Dose 1 TAB; Start 05/16/18 at 17:00 Albuterol/ Ipratropium (Duoneb) 3 ml Q4H RESP THERAPY HHN Last administered on 05/27/18 16:45; Admin Dose 3 ML; Start 05/19/18 at 01:00 Metoclopramide HCl (Reglan) 10 mg Q6 IV Last administered on 05/27/18at 12:09; Admin Dose 10 MG; Start 05/20/18 at 18:00 Miscellaneous Information (Pending [facility] Order For Wound Care) This patient borges... PRN PRN XX WOUND CARE; Start 05/21/18 at 04:00 Thiamine HCl (Vitamin B1) 100 mg DAILY PO Last administered on 05/27/18 08:47; Admin Dose 100 MG; Start 05/22/18 at 09:00 Lorazepam (Ativan) 1 mg Q3 PRN IV CONTROL WITHDRAWAL SYMPTOMS Last administered on 05/27/18at 15:45; Admin Dose 1 MG; Start 05/22/18 at 20:30 Spironolactone (Aldactone) 50 mg DAILY PO Last administered on 05/27/18 08:47; Admin Dose 50 MG; Start 05/24/18 at 09:00 Levetiracetam (Keppra) 1,000 mg BID PO Last administered on 05/27/18 08:47; Admin Dose 1,000 MG; Start 05/24/18 at 21:00 Heparin Sodium (Porcine) (Heparin (5000 Units/1ml)) 5,000 unit BID SC Last administered on 05/27/18 08:50; Admin Dose 5,000 UNIT; Start 05/25/18 at 21:00 Furosemide (Lasix) 20 mg BID DIURETICS IV Last administered on 05/27/18at 06:14; Admin Dose 20 MG; Start 05/26/18 at 19:22 Lactulose (Enulose) 20 gm DAILY PO ; Start 05/28/18 at 09:00 KIAN MATHEW MD May 27, 2018 17:48
[2018-05-27] MEDS ORDERED: CEPASTAT LOZENGE MT PRN (18:00)
[2018-05-27 20:10] VITALS: BP 114/64; PULSE 91; RESP 16
[2018-05-28] MEDS: ALBUTEROL/IPRATROPIUM (NEB) 3 ML AMP HHN SCH ×5 (00:44→14:00)
[2018-05-28] MEDS: METOCLOPRAMIDE 10 MG INJ IV SCH ×2 (01:38→06:00)
[2018-05-28 02:49] VITALS: BP 111/55; PULSE 97; RESP 16
[2018-05-28] MEDS: HYDROCODONE/APAP (5/325) TAB PO PRN ×2 (03:23→09:26)
[2018-05-28 08:00] VITALS: BP 118/64; PULSE 90; RESP 17
[2018-05-28] MEDS: LACTULOSE 30ML CUP PO SCH ×2 (09:00→09:28)
[2018-05-28] MEDS ORDERED: FUROSEMIDE 40 MG TAB PO SCH (09:00)
[2018-05-28] MEDS: GABAPENTIN 300 MG CAP PO SCH (09:25)
[2018-05-28] MEDS: SPIRONOLACTONE 50 MG TAB PO SCH (09:25)
[2018-05-28] MEDS: THIAMINE 100 MG TAB PO SCH (09:25)
[2018-05-28] MEDS: LEVETIRACETAM 500 MG TAB PO SCH (09:26)
[2018-05-28] MEDS: HEPARIN 5,000 UNIT/1 ML VIAL SC SCH (09:28)
--- NOTE | 2018-05-28 10:17 | PN ---
Date/Time of Note Date/Time of Note DATE: 05/28/18 TIME: 10:15 Assessment/Plan VTE Prophylaxis Risk score (from Ns)>0 risk: 3 SCD applied (from Ns): Yes Pharmacological prophylaxis: NA/contraindicated Pharm contraindication: bleeding Lines/Catheters [facility] Mid Line Urinary Cath still in place: No Assessment/Plan Hospital Course Assessment: Liver cirrhosis -Untreated hepatitis C versus alcohol abuse- Currently RNA pending -Hepatitis B core AB- reactive (IgM non-reactive) -Hepatitis B AG negative Upper abdominal pain- improved Common bile duct dilation on imaging Status post ERCP 05/20/18 -Significant dilatation of the biliary tree with poor emptying consistent with papillary stenosis -Post sphincterotomy and balloon sweeping of the biliary tree Normocytic Anemia Thrombocytopenia- resolved Encephalopathy, toxic- improving UTI Wound to left lower extremity Scrotal edema- on diuretics- improving Hx of IV drug abuse Elevated Lfts - Increase alk phos and AST Plan: 2gm Na diet Continue lactulose (titrate to 3-4 BMs per day), Adjust Lasix and Aldactone - monitor labs Continue current regimen Result Diagram: 05/28/1834 05/28/18 0534 Results 24hrs Laboratory Tests Test 05/28/18 05:34 White Blood Count 6.8 Red Blood Count 3.42 L Hemoglobin 10.7 L Hematocrit 32.8 L Mean Corpuscular Volume 95.9 Mean Corpuscular Hemoglobin 31.3 Mean Corpuscular Hemoglobin Concent 32.6 Red Cell Distribution Width 16.5 H Platelet Count 164 Mean Platelet Volume 9.4 Immature Granulocytes % 0.400 Neutrophils % 63.0 Lymphocytes % 15.4 Monocytes % 13.5 H Eosinophils % 6.7 Basophils % 1.0 Nucleated Red Blood Cells % 0.0 Immature Granulocytes # 0.030 Neutrophils # 4.3 Lymphocytes # 1.1 Monocytes # 0.9 Eosinophils # 0.5 Basophils # 0.1 Nucleated Red Blood Cells # 0.0 Sodium Level 139 Potassium Level 4.6 Chloride Level 106 Carbon Dioxide Level 29 Anion Gap 4 L Blood Urea Nitrogen 15 Creatinine 0.71 Est Glomerular Filtrat Rate mL/min > 60 Glucose Level 97 Calcium Level 8.6 Subjective 24 Hr Interval Summary Free Text/Dictation Records reviewed with nursing staff. Patient appears comfortable. He requests pain medication. Tolerating diet. There appears to be no objective process requiring narcotic administration Exam/Review of Systems Exam Vitals Vital Signs Date Temp Pulse Resp B/P (MAP) Pulse Ox O2 O2 Flow FiO2 Time Delivery Rate 05/28/18 3.0 09:40 05/28/18 97.9 90 17 118/64 92 Room Air 08:00 (82) 05/27/18 21 20:28 Intake and Output 05/27/18 05/27/18 05/28/18 1515:00 23:00 07:00 IntakeIntake Total 350 ml 200 ml 240 ml OutputOutput Total 600 ml BalanceBalance 350 ml 200 ml -360 ml Exam Exam GENERAL: Oriented to name and place SKIN: multiple scars, wound to LLE dressing in place. EYES: Pupils equal reactive to light, no discharge. EARS/NOSE AND THROAT: Ears normal, nose normal. NECK: Supple, no masses. CHEST: Inspection within normal limits. CARDIOVASCULAR: Heart: Regular rate and rhythm RESPIRATORY: Lungs clear to auscultation GASTROINTESTINAL AND LIVER: Abdomen: Soft, moderately distended- improved post paracentesis, tender in right upper quadrant- improved , +ascites, no hernias, no masses, no organomegaly, no guarding, no rebound tenderness, normoactive bowel sounds. Rectal: Deferred. GENITOURINARY: scrotal edema EXTREMITIES: No cyanosis, clubbing, 1+ pitting edema. Results Results 24hrs Laboratory Tests Test 05/28/18 05:34 White Blood Count 6.8 Red Blood Count 3.42 L Hemoglobin 10.7 L Hematocrit 32.8 L Mean Corpuscular Volume 95.9 Mean Corpuscular Hemoglobin 31.3 Mean Corpuscular Hemoglobin Concent 32.6 Red Cell Distribution Width 16.5 H Platelet Count 164 Mean Platelet Volume 9.4 Immature Granulocytes % 0.400 Neutrophils % 63.0 Lymphocytes % 15.4 Monocytes % 13.5 H Eosinophils % 6.7 Basophils % 1.0 Nucleated Red Blood Cells % 0.0 Immature Granulocytes # 0.030 Neutrophils # 4.3 Lymphocytes # 1.1 Monocytes # 0.9 Eosinophils # 0.5 Basophils # 0.1 Nucleated Red Blood Cells # 0.0 Sodium Level 139 Potassium Level 4.6 Chloride Level 106 Carbon Dioxide Level 29 Anion Gap 4 L Blood Urea Nitrogen 15 Creatinine 0.71 Est Glomerular Filtrat Rate mL/min > 60 Glucose Level 97 Calcium Level 8.6 Medications Medication Current Medications IV Flush (NS 3 ml) 3 ml PER PROTOCOL IV ; Start 05/14/18 at 00:00 Ondansetron HCl (Zofran Inj) 4 mg Q6H PRN IV NAUSEA/VOMITING; Start 05/14/18 at 00:00 Albuterol/ Ipratropium (Duoneb) 3 ml Q2H RESP THERAPY PRN HHN SHORTNESS OF BREATH Last administered on 05/23/18 03:27; Admin Dose 3 ML; Start 05/14/18 at 00:00 Gabapentin (Neurontin) 300 mg BID PO Last administered on 05/28/18 09:25; Admin Dose 300 MG; Start 05/14/18 at 10:00 Acetaminophen/ Hydrocodone Bitart ([place] (5/325)) 1 tab Q4H PRN PO MODERATE PAIN LEVEL 4-6 Last administered on 05/28/18 09:26; Admin Dose 1 TAB; Start 05/16/18 at 17:00 Albuterol/ Ipratropium (Duoneb) 3 ml Q4H RESP THERAPY HHN Last administered on 05/28/18 04:43; Admin Dose 3 ML; Start 05/19/18 at 01:00 Miscellaneous Information (Pending Santyl Order For Wound Care) This patient borges... PRN PRN XX WOUND CARE; Start 05/21/18 at 04:00 Thiamine HCl (Vitamin B1) 100 mg DAILY PO Last administered on 05/28/18 09:25; Admin Dose 100 MG; Start 05/22/18 at 09:00 Lorazepam (Ativan) 1 mg Q3 PRN IV CONTROL WITHDRAWAL SYMPTOMS Last administered on 05/27/18at 15:45; Admin Dose 1 MG; Start 05/22/18 at 20:30 Levetiracetam (Keppra) 1,000 mg BID PO Last administered on 05/28/18 09:26; Admin Dose 1,000 MG; Start 05/24/18 at 21:00 Heparin Sodium (Porcine) (Heparin (5000 Units/1ml)) 5,000 unit BID SC Last administered on 05/28/18 09:28; Admin Dose 5,000 UNIT; Start 05/25/18 at 21:00 Lactulose (Enulose) 20 gm DAILY PO ; Start 05/28/18 at 09:00 Spironolactone (Aldactone) 100 mg BID PO Last administered on 05/28/18at 09:25; Admin Dose 100 MG; Start 05/27/18 at 21:00 Furosemide (Lasix) 40 mg DAILY PO Last administered on 05/28/18at 09:26; Admin Dose 40 MG; Start 05/28/18 at 09:00 Phenol (Cepastat Lozenge) 1 lozenge Q1H PRN MT sore throat; Start 05/27/18 at 18:00 KIAN MATHEW MD May 28, 2018 10:17
--- NOTE | 2018-05-28 11:44 | PN ---
Date/Time of Note Date/Time of Note DATE: 05/28/18 TIME: 11:40 Objective Vitals Vital Signs Date Temp Pulse Resp B/P (MAP) Pulse Ox O2 O2 Flow FiO2 Time Delivery Rate 05/28/18 3.0 09:40 05/28/18 97.9 90 17 118/64 92 Room Air 08:00 (82) 05/27/18 21 20:28 Intake and Output 05/27/18 05/27/18 05/28/18 1414:59 22:59 06:59 IntakeIntake Total 350 ml 200 ml 240 ml OutputOutput Total 600 ml BalanceBalance 350 ml 200 ml -360 ml Results Result Diagram: 05/28/18 0534 05/28/18 0534 Medications Medications Current Medications IV Flush (NS 3 ml) 3 ml PER PROTOCOL IV ; Start 05/14/18 at 00:00 Ondansetron HCl (Zofran Inj) 4 mg Q6H PRN IV NAUSEA/VOMITING; Start 05/14/18 at 00:00 Albuterol/ Ipratropium (Duoneb) 3 ml Q2H RESP THERAPY PRN HHN SHORTNESS OF BREATH Last administered on 05/23/18at 03:27; Admin Dose 3 ML; Start 05/14/18 at 00:00 Gabapentin (Neurontin) 300 mg BID PO Last administered on 05/28/18at 09:25; Admin Dose 300 MG; Start 05/14/18 at 10:00 Acetaminophen/ Hydrocodone Bitart ([place] (5/325)) 1 tab Q4H PRN PO MODERATE PAIN LEVEL 4-6 Last administered on 05/28/18at 09:26; Admin Dose 1 TAB; Start 05/16/18 at 17:00 Albuterol/ Ipratropium (Duoneb) 3 ml Q4H RESP THERAPY HHN Last administered on 05/28/18at 04:43; Admin Dose 3 ML; Start 05/19/18 at 01:00 Miscellaneous Information (Pending Santyl Order For Wound Care) This patient borges... PRN PRN XX WOUND CARE; Start 05/21/18 at 04:00 Thiamine HCl (Vitamin B1) 100 mg DAILY PO Last administered on 05/28/18at 09:25; Admin Dose 100 MG; Start 05/22/18 at 09:00 Lorazepam (Ativan) 1 mg Q3 PRN IV CONTROL WITHDRAWAL SYMPTOMS Last administered on 05/27/18 15:45; Admin Dose 1 MG; Start 05/22/18 at 20:30 Levetiracetam (Keppra) 1,000 mg BID PO Last administered on 05/28/18 09:26; Admin Dose 1,000 MG; Start 05/24/18 at 21:00 Heparin Sodium (Porcine) (Heparin (5000 Units/1ml)) 5,000 unit BID SC Last administered on 05/28/18 09:28; Admin Dose 5,000 UNIT; Start 05/25/18 at 21:00 Lactulose (Enulose) 20 gm DAILY PO ; Start 05/28/18 at 09:00 Spironolactone (Aldactone) 100 mg BID PO Last administered on 05/28/18 09:25; Admin Dose 100 MG; Start 05/27/18 at 21:00 Furosemide (Lasix) 40 mg DAILY PO Last administered on 05/28/18 09:26; Admin Dose 40 MG; Start 05/28/18 at 09:00 Phenol (Cepastat Lozenge) 1 lozenge Q1H PRN MT sore throat; Start 05/27/18 at 18:00 Piperacillin Sod/ Tazobactam Sod 100 ml @ 200 mls/hr Q6 IVPB ; Start 05/28/18 at 12:00 VTE Prophylaxis Risk score (from Ns)>0 risk: 3 SCD applied (from Ns): Yes Lines/Catheters IV Catheter Type: Sharma in Place: No Assessment/Plan Hospital Course S: Patient wishes to leave, when assessing patient patient does have a plan however his orientation is questionable, patient is oriented to self, situation, and has a plan however he does have some issues which includes date. OBJECTIVE : Constitutional: Awake, alert, answering questions appropriately Head: atraumatic, normocephalic Neck: non-tender, supple Respiratory: Mildly coarse bilaterally Cardiovascular: murmur not as pronounced Gastrointestinal: S/ NT /mild enlargement/ +BS / scrotal edema ++ Extremities: tamir Trace edema, good radial pulses assessment and plan: 62 yo man with cirrhosis admitted with AMS and RLE wound. He had developed encephalopathy which seems to have resolved, but he remains quite debilitated. gravity prospecting supervisor are working on placement as he had told us he was homeless in the past, but with new information, we will see if we can contact his family. He is currently managed as follows : Acute respiratory failure : -patient has improved, but still on nasal cannula as needed -CT reviewed and showed moderate bilateral pleural effusions, however , no fluid on thoracentesis -continue daily lasix / aldactone combo -BNP wasn't impressive for CHF as was echo, but PUlm HTN noted Acalculous Cholecystitis -+HIDA -s/p ERCP on 05/20 with no stones or sludge; papillary stenosis -Currently patient has no RUQ pain, tolerating diet -continue abx -Spoke with Dr Gastelum, he states patient is poor surgical candidate with ascites and chronic liver disease and high risk for post op complications, hence since symptoms have resolved and patient is tolerating a diet, no further surgical input at this time. Toxic/alcoholic encephalopathy: now improving - Likely related to alcohol intoxication especially when combined with his home medications, one of them Vicodin. He also takes Neurontin. - Patient seems to have an element of confabulation. May be Wernicke's encephalopathy. Started low dose oral thiamine. -symptoms improved, patient fairly appropriate at this time - Blood alcohol level very elevated on admission - s/p Librium taper. Not requiring Ativan. s/p banana bag. Biliary tree dilation with papillary stenosis seen on ERCP -f/u biopsies ? -s/p sphincterotomy and ballon sweeping -no hyperbilirubinemia -GI following, f/u recs Liver cirrhosis (alcoholic / Hep C / Hep B) -mild transaminitis to ast >>alt and + alk phos -indices are stable, hence likely chronic -continue monitoring Hep C with cirrhosis, ascites, anasarca and portal HTN and varices: -f/u Hep c RNA -not a good candidate for treatment based on social issues, defer to GI -low dose propranolol? -s/p paracentesis 05/25/18, 3.6 L removed, no gross finding of SBP, f/u cultures +Hep B core ab -chronic infection? Scrotal edema - Likely from anasarca. CT negative for subQ gas. keep elevated Chronic Sz d/o -maintained on home Keppra Hx of IVDA Chronic alcoholism -s/p cessation counselling, resources provided by [facility] Possible COPD with Pulm HTN Dispo: - continue gentle diuresis and O2 weaning -patient is homeless and debilitated, PT notes reviewed, still unsafe for self discharge also still needs O2, returned case inspector still working on placement -continue conservative treatment of cholecystitis, 2nd surgical opinion? patient remains comfortable however -Patient wishes to leave AGAINST MEDICAL ADVICE, however it is uncertain if patient is able to leave as he is not quite oriented, social insurance adviser, charge nurse, nursing wood preparation supervisor all assessed patient and agree that patient is alert and oriented somewhat, however patient is able to ambulate and we cannot stop him from leaving, tele-psych was ordered to assess orientation and alertness, if patient is deemed alert and oriented by tele-psych, patient will be allowed to sign out AGAINST MEDICAL ADVICE however if patient is deemed not fully oriented by tele-psych, patient will likely elope and [employer] will be called per nursing wood preparation supervisor. CHEN CARRANZA May 28, 2018 11:43
[2018-05-28] MEDS ORDERED: PIPER-TAZO 3.375 GM IV (PMX) 100 ML IVPB SCH (12:00)
--- NOTE | 2018-05-28 13:16 | CONS ---
Date/Time of Note Date/Time of Note DATE: 05/28/18 TIME: 13:13 Consult Date/Type/Reason Admit Date May 13, 2018 at 20:53 Type of Consult Subjective Patient is currently disorganized and confused, Mini-Mental status exam is 16/30. Patient cannot process information difficult to redirect. He is extremely anxious poor coping skills. Patient is threatening to leave AMA to [facility] stating he has several physicians who take care of him over the. Patient really does not have the capacity to make his own decisions Objective Patient Appearance: Poor Hygiene Voice Loudness: Mildly Soft/Quiet Mood and Affect Description: Anxious Mood or Affect: Fearful Speech Pattern: Clear Hallucination Type: None Delusion Description: Not Present Assessment/Plan Recommendations Continue same medications and recommendation possibly transfer him to [facility] ALEX WIGGINS NP May 28, 2018 13:16
--- NOTE | 2018-05-28 14:53 | DS ---
Date/Time of Note Date/Time of Note DATE: 05/28/18 TIME: 14:53 Discharge Summary Admission/Discharge Info Admit Date/Time May 13, 2018 at 20:53 Discharge Date/Time May 28, 2018 at 14:00 Patient Condition: Critical Hospital Course Patient is not alert and oriented, patient eloped from the hospital, escorted alongside with nursing supervisor dimension warehouse and security. Nursing supervisor dimension warehouse to call [employer] to inform of welfare check Home Meds Reported Medications Levetiracetam* (Keppra*) 1,000 Mg Tablet, 1000 MG PO BID, TAB 05/13/18 Gabapentin* (Gabapentin*) 300 Mg Capsule, 300 MG PO BID, #60 CAP 05/13/18 Famotidine* (Famotidine*) 40 Mg Tablet, 40 MG PO HS, #30 TAB 05/13/18 Furosemide* (Furosemide*) 20 Mg Tablet, 20 MG PO DAILY, #60 TAB 05/13/18 Spironolactone* (Aldactone*) 50 Mg Tablet, 50 MG PO DAILY, #30 TAB 05/13/18 Folic Acid* (Folic Acid*) 1 Mg Tablet, 1 MG PO DAILY 05/13/18 Hydrocodone/Acetaminophen ([place] 5-325 Tablet) 1 Each Tablet, 1 EACH PO Q12 PRN for SEVERE PAIN LEVEL 7-10, TAB 05/13/18 Primary Care Provider Care Physician No Primary Time spent on discharge: > 30 minutes Pending Labs Laboratory Tests Test 05/28/18 05:34 White Blood Count 6.8 10^3/ul (4.8-10.8) Red Blood Count 3.42 10^6/ul (4.70-6.10) Hemoglobin 10.7 g/dl (14.0-18.0) Hematocrit 32.8 % (42.0-52.0) Mean Corpuscular Volume 95.9 fl (82.0-101.0) Mean Corpuscular Hemoglobin 31.3 pg (29.0-33.0) Mean Corpuscular Hemoglobin Concent 32.6 g/dl (32.0-37.0) Red Cell Distribution Width 16.5 % (11.5-14.5) Platelet Count 164 10^3/UL (140-415) Mean Platelet Volume 9.4 fl (7.4-10.4) Immature Granulocytes % 0.400 % (0.001-0.429) Neutrophils % 63.0 % (39.0-77.0) Lymphocytes % 15.4 % (15.0-51.0) Monocytes % 13.5 % (0.0-11.0) Eosinophils % 6.7 % (0.0-7.0) Basophils % 1.0 % (0.0-2.0) Nucleated Red Blood Cells % 0.0 /100WBC (0.0-0.0) Immature Granulocytes # 0.030 10^3/ul (0.0-0.031) Neutrophils # 4.3 10^3/ul (1.6-7.5) Lymphocytes # 1.1 10^3/ul (0.8-2.9) Monocytes # 0.9 10^3/ul (0.3-0.9) Eosinophils # 0.5 10^3/ul (0.0-0.5) Basophils # 0.1 10^3/ul (0.0-0.1) Nucleated Red Blood Cells # 0.0 10^3/ul (0.0-0.0) Sodium Level 139 mmol/L (135-144) Potassium Level 4.6 mmol/L (3.5-5.1) Chloride Level 106 mmol/L (97-110) Carbon Dioxide Level 29 mmol/L (21-31) Anion Gap 4 (5-13) Blood Urea Nitrogen 15 mg/dl (7-20) Creatinine 0.71 mg/dl (0.61-1.24) Est Glomerular Filtrat Rate mL/min > 60 mL/min (>60) Glucose Level 97 mg/dl (70-220) Calcium Level 8.6 mg/dl (8.4-10.2) CHEN CARRANZA May 28, 2018 14:53
== END 2018-05-28 14:00 | disposition left against medical advice (07) | DRG 894 ==
LOC: E/R 14:57 → TEL 20:53 → CANRESERV 22:00 → TEL 05-14 10:46 → PP2 05-20 22:10
PROVIDERS: ADMIT Internal Medicine; ATTEND Internal Medicine
PROC: BF10YZZ Fluoroscopy of Bile Ducts using Other Contrast (ICD-10-PCS; 2018-05-20)
PROC: 0F798ZZ Dilation of Common Bile Duct, Via Natural or Artificial Opening Endoscopic (ICD-10-PCS; principal; 2018-05-20 16:00)
PROC: 0W9G3ZZ Drainage of Peritoneal Cavity, Percutaneous Approach (ICD-10-PCS; 2018-05-25)
DX: F10.220 Alcohol dependence with intoxication, uncomplicated (principal); K83.1 Obstruction of bile duct; G92 Toxic encephalopathy; J96.00 Acute respiratory failure, unspecified whether with hypoxia or hypercapnia; L03.115 Cellulitis of right lower limb; N39.0 Urinary tract infection, site not specified; L97.219 Non-pressure chronic ulcer of right calf with unspecified severity; K76.6 Portal hypertension; B19.10 Unspecified viral hepatitis B without hepatic coma; D64.9 Anemia, unspecified; D69.6 Thrombocytopenia, unspecified; F44.89 Other dissociative and conversion disorders; F41.9 Anxiety disorder, unspecified; F51.04 Psychophysiologic insomnia; G40.909 Epilepsy, unspecified, not intractable, without status epilepticus; F17.200 Nicotine dependence, unspecified, uncomplicated; I11.0 Hypertensive heart disease with heart failure; I50.9 Heart failure, unspecified; J44.9 Chronic obstructive pulmonary disease, unspecified; K70.31 Alcoholic cirrhosis of liver with ascites; K81.9 Cholecystitis, unspecified; L53.9 Erythematous condition, unspecified; N50.82 Scrotal pain; N50.89 Other specified disorders of the male genital organs; R07.1 Chest pain on breathing; R55 Syncope and collapse; R53.81 Other malaise; Y90.6 Blood alcohol level of 120-199 mg/100 ml; Z59.0 Homelessness
CPT/HCPCS: 36415; 70450; 71045; 74176; 74177; 74330; 76604; 76705; 78226; 80048; 80053; 80061; 80202; 80307; 81001; 82140; 82550; 82553; 83036; 83605; 83735; 83880; 84100; 84443; 84484; 85025; 85610; 85730; 86704; 86709; 86803; 87040; 87070; 87081; 87086; 87102; 87116; 87340; 87400; 89051; 92526; 92610; 93005; 93306; 93922; 93970; 94640; 94664; 95819; 96374; 96375; 97110; 97116; 97162; 97530; A9537; J0500; J0692; J1100; J1644; J1650; J1940; J1953; J2060; J2250; J2270; J2310; J2405; J2543; J2765; J3010; J3370; J3411; J7030; J7042; J7050; Q9967